=== PATIENT | female | born 1990 | race Caucasian/White ===

== ENCOUNTER 2016-05-03 18:47 | Emergency (ER) | payer OTHER ==
[2016-05-03] MEDS ORDERED: SODIUM CHLORIDE 0.9% 1,000 ML IV STA (19:37)
--- NOTE | 2016-05-03 19:40 | ED ---
Recheck HPI - General Chief Complaint: Recheck/Abnormal Lab/Rx Stated Complaint: MED REACTION Time Seen by Provider: 05/03/16 19:28 Source: patient, RN notes reviewed Mode of arrival: ambulatory Limitations: no limitations - History of Present Illness Initial Comments: 25-year-old female presents to the emergency department with a chief complaint of concerns about her thyroid. Patient does have hypothyroidism. Patient states about 2 months ago they switched her from her Synthroid to the generic medication. Patient states that since then she has noticed weakness fatigue or loss weight gain episodes of cold and hot in a myriad of other complaints. Patient provides a notebook sized piece of paper with a list of complaints. Patient states that she contacted the clinic where she got the prescription and they have not even checked her thyroid level since and the refused to change her medication back to what she was originally on. Patient states she is here because she just did not know where else to go. Patient states she is also noticed a nodule on top of her thyroid. Patient states that she was concerned so she thought that she should be evaluated. Patient denies any recent fever, chills, shortness of breath, chest pain, back pain, abdominal pain, nausea vomiting, numbness or tingling, dysuria or hematuria, constipation or diarrhea, headaches or visual changes, or any other current symptoms. - Related Data Home Medications Medication Instructions Recorded Confirmed ARIPiprazole [Abilify] 15 mg PO HS 04/26/15 05/03/16 Albuterol Inhaler [Ventolin Hfa 2 puff INHALATION RT-Q6H PRN 04/26/15 05/03/16 Inhaler] HYDROcodone/APAP 7.5-325MG [[place] 1 tab PO BID 04/26/15 05/03/16 7.5-325] Levothyroxine Sodium [Levoxyl] 50 mcg PO QAM 04/26/15 05/03/16 Fluticasone Nasal [place] [Flonase 1 spray EA NOSTRIL BID 02/14/16 05/03/16 Nasal [place]] Gabapentin [Neurontin] 400 mg PO TID 02/14/16 05/03/16 Ranitidine HCl [Zantac] 300 mg PO BID 02/14/16 05/03/16 Sertraline HCl [Zoloft] 200 mg PO DAILY 02/14/16 05/03/16 Gabapentin [Neurontin] 100 mg PO TID 05/03/16 05/03/16 Previous Rx's Medication Instructions Recorded Albuterol Inhaler [Ventolin Hfa 1 - 2 puff INHALATION Q6HR PRN #2 02/14/16 Inhaler] puff Allergies Allergy/AdvReac Type Severity Reaction Status Date / Time adhesive Allergy Rash/Hives Verified 05/03/16 19:41 amoxicillin [Amoxicillin] Allergy Rash/Hives Verified 05/03/16 19:41 hydrocortisone Allergy Rash/Hives Verified 05/03/16 19:41 sulfamethoxazole Allergy Rash/Hives Verified 05/03/16 19:41 [From Bactrim] trimethoprim [From Bactrim] Allergy Rash/Hives Verified 05/03/16 19:41 Review of Systems ROS Statement: Those systems with pertinent positive or pertinent negative responses have been documented in the HPI. ROS Other: All systems not noted in ROS Statement are negative. Past Medical History Past Medical History: Asthma, Fibromyalgia, Pneumonia, Skin Disorder, Syncope, Thyroid Disorder Additional Past Medical History / Comment(s): MIGRAINES(STATED HAS ENLARGED BLOOD VESSEL LT SIDE OF BRAIN), VILITIGO(AUTO IMMUNE SKIN DISEASE) LACTOSE INTOLERANCE. History of Any Multi-Drug Resistant Organisms: None Reported Past Surgical History: Adenoidectomy, Heart Catheterization Additional Past Surgical History / Comment(s): TILT TABLE TEST-08/2013, Dental surgary with two pulled teeth on the lower left jaw. Past Anesthesia/Blood Transfusion Reactions: Previous Problems w/ Anesthesia, Motion Sickness Additional Past Anesthesia/Blood Transfusion Reaction / Comment(s): B/P DROPS VERY LOW WITH EPIDURALS PER PT, CLAUSTERPHOBIA Past Psychological History: Anxiety, Bipolar, Panic Disorder Smoking Status: Current every day smoker Past Alcohol Use History: None Reported Additional Past Alcohol Use History / Comment(s): HAS BEEN SMOKING FOR 10 YEARS 1/2 PPD, DENIES ANY ETOH , SMOKES MARIJUANA TO IMPROVE APPETITE Past Drug Use History: Marijuana Additional Drug Use History / Comment(s): MARIJUANA-USES 1-2 TIMES DAILY - Past Family History Mother Family Medical History: Cancer Additional Family Medical History / Comment(s): THYROID AND CERVICAL CAMCER, BIPOLAR. MATERNAL GRANDMOTHER HAD ULCERATIVE COLITIS. Father Additional Family Medical History / Comment(s): IBA, BIPOLAR General Exam - General Exam Comments Initial Comments: General: The patient is awake and alert, in no distress, and does not appear acutely ill. Eye: Pupils are equal, round and reactive to light, extra-ocular movements are intact; there is normal conjunctiva bilaterally. No signs of icterus. Ears, nose, mouth and throat: There are moist mucous membranes. Neck: The neck is supple, there is no tenderness. Cardiovascular: There is a regular rate and rhythm. No murmur, rub or gallop is appreciated. Respiratory: Lungs are clear to auscultation, respirations are non-labored, breath sounds are equal. No wheezes, stridor, rales, or rhonchi. Gastrointestinal: Soft, non-distended, non-tender abdomen without masses or organomegaly noted. There is no rebound or guarding present. No CVA tenderness. Bowel sounds are unremarkable. Back: There is no tenderness to palpation in the midline. There is no obvious deformity. No rashes noted. Musculoskeletal: Normal ROM, no tenderness, There is no pedal edema. There is no calf tenderness or swelling. Sensation intact. Pulses equal bilaterally 2+. Neurological: CN II-XII intact, There are no obvious motor or sensory deficits. Coordination appears grossly intact. Speech is normal. Skin: Skin is warm and dry and no rashes or lesions are noted. Psychiatric: Cooperative, appropriate mood & affect, normal judgment. Limitations: no limitations Course Vital Signs 05/03/16 18:54 Temperature 98.4 F Pulse Rate 83 Respiratory 16 Rate Blood Pressure 124/82 O2 Sat by Pulse 97 Oximetry Medical Decision Making - Medical Decision Making 25-year-old female presents emergency department with a chief complaint of concern about her thyroid. At this time patient thyroid is examined and is normal. Patient's laboratory is otherwise benign and the ultrasound was reviewed does not show any concerning significant findings. This time patient is informed of these results. Follow-up with her doctor as well as a possible shot blaster. Discussed continuing her medications. Patient stated that she understood and all her questions have been answered. She'll be discharged. - Lab Data Result diagrams: 05/03/16 20:12 05/03/16 20:12 Lab Results 05/03/16 05/03/16 05/03/16 Range/Units 20:12 20:12 20:57 WBC 4.0 (3.8-10.6) k/uL RBC 4.04 (3.80-5.40) m/uL Hgb 12.8 (11.4-16.0) gm/dL Hct 38.5 (34.0-46.0) % MCV 95.2 (80.0-100.0) fL MCH 31.7 (25.0-35.0) pg MCHC 33.3 (31.0-37.0) g/dL RDW 13.1 (11.5-15.5) % Plt Count 216 (150-450) k/uL Neutrophils % 52 % Lymphocytes % 38 % Monocytes % 4 % Eosinophils % 2 % Basophils % 1 % Neutrophils # 2.1 (1.3-7.7) k/uL Lymphocytes # 1.5 (1.0-4.8) k/uL Monocytes # 0.2 (0-1.0) k/uL Eosinophils # 0.1 (0-0.7) k/uL Basophils # 0.0 (0-0.2) k/uL Sodium 141 (137-145) mmol/L Potassium 3.9 (3.5-5.1) mmol/L Chloride 106 (98-107) mmol/L Carbon Dioxide 27 (22-30) mmol/L Anion Gap 8 mmol/L BUN 23 H (7-17) mg/dL Creatinine 0.86 (0.52-1.04) mg/dL Est GFR (MDRD) Af Amer >60 (>60 ml/min/1.73 sqM) Est GFR (MDRD) Non-Af >60 (>60 ml/min/1.73 sqM) Glucose 84 (74-99) mg/dL Calcium 9.5 (8.4-10.2) mg/dL Total Bilirubin 0.5 (0.2-1.3) mg/dL AST 19 (14-36) U/L ALT 24 (9-52) U/L Alkaline Phosphatase 62 (38-126) U/L Total Protein 6.6 (6.3-8.2) g/dL Albumin 4.3 (3.5-5.0) g/dL TSH 2.360 (0.465-4.680) mIU/L Urine Color Urine Appearance (Clear) Urine pH (5.0-8.0) Ur Specific [place] (1.001-1.035) Urine Protein (Negative) Urine Glucose (UA) (Negative) Urine Ketones (Negative) Urine Blood (Negative) Urine Nitrate (Negative) Urine Bilirubin (Negative) Urine Urobilinogen (<2.0) mg/dL Ur Leukocyte Esterase (Negative) Urine RBC (0-5) /hpf Urine WBC (0-5) /hpf Ur Squamous Epith Cells (0-4) /hpf Urine Bacteria (None) /hpf Urine Mucus (None) /hpf Urine HCG, Qual Not Detected (Not Detectd) 05/03/16 Range/Units 20:57 WBC (3.8-10.6) k/uL RBC (3.80-5.40) m/uL Hgb (11.4-16.0) gm/dL Hct (34.0-46.0) % MCV (80.0-100.0) fL MCH (25.0-35.0) pg MCHC (31.0-37.0) g/dL RDW (11.5-15.5) % Plt Count (150-450) k/uL Neutrophils % % Lymphocytes % % Monocytes % % Eosinophils % % Basophils % % Neutrophils # (1.3-7.7) k/uL Lymphocytes # (1.0-4.8) k/uL Monocytes # (0-1.0) k/uL Eosinophils # (0-0.7) k/uL Basophils # (0-0.2) k/uL Sodium (137-145) mmol/L Potassium (3.5-5.1) mmol/L Chloride (98-107) mmol/L Carbon Dioxide (22-30) mmol/L Anion Gap mmol/L BUN (7-17) mg/dL Creatinine (0.52-1.04) mg/dL Est GFR (MDRD) Af Amer (>60 ml/min/1.73 sqM) Est GFR (MDRD) Non-Af (>60 ml/min/1.73 sqM) Glucose (74-99) mg/dL Calcium (8.4-10.2) mg/dL Total Bilirubin (0.2-1.3) mg/dL AST (14-36) U/L ALT (9-52) U/L Alkaline Phosphatase (38-126) U/L Total Protein (6.3-8.2) g/dL Albumin (3.5-5.0) g/dL TSH (0.465-4.680) mIU/L Urine Color Yellow Urine Appearance Cloudy H (Clear) Urine pH 6.0 (5.0-8.0) Ur Specific [place] 1.019 (1.001-1.035) Urine Protein Trace H (Negative) Urine Glucose (UA) Negative (Negative) Urine Ketones Negative (Negative) Urine Blood Negative (Negative) Urine Nitrate Negative (Negative) Urine Bilirubin Negative (Negative) Urine Urobilinogen <2.0 (<2.0) mg/dL Ur Leukocyte Esterase Small H (Negative) Urine RBC 1 (0-5) /hpf Urine WBC 2 (0-5) /hpf Ur Squamous Epith Cells 11 H (0-4) /hpf Urine Bacteria Rare H (None) /hpf Urine Mucus Rare H (None) /hpf Urine HCG, Qual (Not Detectd) - Radiology Data Radiology results: report reviewed, image reviewed Disposition Clinical Impression: Weakness generalized, Hypothyroidism, Neck nodule Disposition: HOME SELF-CARE Condition: Stable Instructions: Hypothyroidism (ED) Additional Instructions: Please use medication as discussed. Please follow up with family doctor if symptoms have not improved over the next two days. Please return to the emergency room if your symptoms increase or worsen or for any other concerns. Referrals: Zohaib Callahan MD [Primary Care Provider] - 1-2 days Time of Disposition: 21:26
[2016-05-03 20:26] LABS: Basophils % (A) 1 %; CH 31.8; CHCM 33.6; Eosinophils # (A) 0.1 k/uL (0-0.7); Eosinophils % (A) 2 %; HCT 38.5 % (34.0-46.0); HDW 2.46; HGB 12.8 gm/dL (11.4-16.0); Luc # (Auto) 0.11; Luc % (Auto) 3; Lymphocytes # (A) 1.5 k/uL (1.0-4.8); Lymphocytes % (A) 38 %; MCH 31.7 pg (25.0-35.0); MCHC 33.3 g/dL (31.0-37.0); MCV 95.2 fL (80.0-100.0); Mean Platelet Volume 6.8; Monocytes # (A) 0.2 k/uL (0-1.0); Monocytes % (A) 4 %; Neutrophils # (A) 2.1 k/uL (1.3-7.7); Neutrophils % (A) 52 %; RBC 4.04 m/uL (3.80-5.40); RDW 13.1 % (11.5-15.5); WBC (Perox) 4.01
[2016-05-03 20:35] LABS: ALT 24 U/L (9-52); AST 19 U/L (14-36); Alkaline Phosphatase 62 U/L (38-126); Anion Gap 8 mmol/L; Blood Urea Nitrogen 23 mg/dL (7-17); Calcium 9.5 mg/dL (8.4-10.2); Carbon Dioxide 27 mmol/L (22-30); Chloride 106 mmol/L (98-107); Glucose 84 mg/dL (74-99); Non-African American GFR(MDRD) >60 (>60 ml/min/1.73 sqM); Potassium 3.9 mmol/L (3.5-5.1); Sodium 141 mmol/L (137-145); Total Bilirubin 0.5 mg/dL (0.2-1.3); Total Protein 6.6 g/dL (6.3-8.2)
--- NOTE | 2016-05-03 20:57 | US ---
EXAMINATION TYPE: US thyroid st tissue head/neck DATE OF EXAM: 05/03/2016 8:48 PM COMPARISON: 05/25/2015 CLINICAL HISTORY: patient is now on generic meds and noticed hair falling out, cold, sweaty. GLAND SIZE: Right Lobe: 4.3 x 1.4 x 2.1cm Overall Parenchyma: homogeneous Left Lobe: 4.6 x 1.1 x 1.6cm Overall Parenchyma: homogeneous Isthmus Thickness: 0.3cm NODULES RIGHT: # of nodules measured on right: 0 LEFT: # of nodules measured on left: 0 ISTHMUS: # of nodules measured in the isthmus: 1 1. 0.3 X 0.4 x 0.3 cm hypoechoic solid nodule with well-defined margins. This nodule is wider than tall and shows no intranodular vascularity. TECHNOLOGIST IMPRESSION: Bilateral neck scanned, no abnormal lymphadenopathy noted. IMPRESSION: There is a 3 mm hypoechoic nodule on the right side of the isthmus of doubtful significance. Otherwis e negative thyroid sonogram. No dominant mass. No change compared to old exam. Sonographic pattern Very low suspicion. SONOGRAPHIC PATTERNS, ESTIMATED MALIGNANCY RISK AND FNA GUIDANCE FOR THYROID NODULES Sonographic Pattern: Benign Ultrasound Features: Purely Cystic Nodules (No Solid Component) Estimated Risk Of Malignancy, %: <1 FNA Size Cutoff (Largest Dimension): No Biopsy Sonographic Pattern: Very Low Suspicion Ultrasound Features: Spongiform Or Partially Cystic Nodules Without Any Of The Sonographic Features Described In Low, Inte rmediate Or High Suspicion Patterns. Estimated Risk Of Malignancy, %: <3 FNA Size Cutoff (Largest Dimension): Recommend FNA At > 2cm Or Observation Without FNA Sonographic Pattern: Low Suspicion Ultrasound Features: Isoechoic Or Hyperechoic Solid Nodule, Or Partially Cystic Nodule With Eccentric Solid Areas, Without Microcalcification, Irregular Margin Or Ete, Or Taller Than Wide Shape. Estimated Risk Of Malignancy, %: 5-10 FNA Size Cutoff (Largest Dimension): Recommend FNA At > 1.5cm Sonographic Pattern: Intermediate Suspicion Ultrasound Features: Hypoechoic Solid Nodule With Smooth Margins Without Microcalcifications, Ete, Or Taller Than Wide Sha pe. Estimated Risk Of Malignancy, %: 10-20 FNA Size Cutoff (Largest Dimension): Recommend FNA At > 1cm Sonographic Pattern: High Suspicion Ultrasound Features: Solid Hypoechoic Nodule Or Solid Hypoechoic Component Of A Partially Cystic Nodule With One Or More O f The Following Features: Irregular Margins (Infiltrative, Microlobulated), Microcalcifications, Tall er Than Wide Shape, Rim Calcifications With Small Extrusive Soft Tissue Component, Evidence Of Ete Estimated Risk Of Malignancy, %: >70-90 FNA Size Cutoff (Largest Dimension): Recommend FNA At > 1cm
[2016-05-03 21:07] LABS: Appearance,Urine Cloudy (Clear); Bacteria,Urine Rare /hpf; Bilirubin,Urine Negative (Negative); Glucose,Urine (UA) Negative (Negative); Ketones,Urine Negative (Negative); Leukocyte Esterase,Urine Small (Negative); Mucus,Urine Rare /hpf; Nitrite,Urine Negative (Negative); Particle Count 4540; Protein,Urine Trace (Negative); RBC,Urine 1 /hpf (0-5); Specific Gravity,Urine 1.019 (1.001-1.035); Squamous Epithelial Cell,Urine 11 /hpf (0-4); UA Billing (MACRO vs. MICRO) MICRO; Urobilinogen,Urine <2.0 mg/dL (<2.0); WBC,Urine 2 /hpf (0-5)
[2016-05-03 21:47] VITALS: BP 115/60; PULSE 78; RESP 18; TEMP 97
== END 2016-05-03 21:47 | disposition home or self-care (01) ==
LOC: EC 18:47
DX: E03.9 Hypothyroidism, unspecified (principal); R22.1 Localized swelling, mass and lump, neck; F31.9 Bipolar disorder, unspecified; M79.7 Fibromyalgia; F41.9 Anxiety disorder, unspecified; J45.909 Unspecified asthma, uncomplicated; F17.200 Nicotine dependence, unspecified, uncomplicated; Z79.899 Other long term (current) drug therapy; Z79.891 Long term (current) use of opiate analgesic; Z79.51 Long term (current) use of inhaled steroids; Z91.048 Other nonmedicinal substance allergy status; Z88.8 Allergy status to other drugs, medicaments and biological substances; Z88.2 Allergy status to sulfonamides; Z88.0 Allergy status to penicillin; Z88.1 Allergy status to other antibiotic agents; F41.0 Panic disorder [episodic paroxysmal anxiety]
CPT/HCPCS: 36415; 76536; 80053; 81001; 81025; 84443; 85025; 99284

== ENCOUNTER 2016-05-06 18:02 | Emergency (ER) | payer OTHER ==
[2016-05-06] MEDS ORDERED: KETOROLAC 60 MG/2 ML VIAL IM STA (18:23)
[2016-05-06] MEDS ORDERED: ORPHENADRINE 30 MG/ML 2 ML VIAL IM STA (18:23)
[2016-05-06 18:29] VITALS: BP 109/65; PULSE 72; RESP 16; TEMP 97.7
--- NOTE | 2016-05-06 18:36 | XR ---
EXAMINATION TYPE: XR shoulder complete LT DATE OF EXAM: 05/06/2016 6:32 PM CLINICAL HISTORY: pain TECHNIQUE: Three views of the left shoulder are obtained. COMPARISON: None FINDINGS: There is no acute fracture/dislocation evident. The acromioclavicular and glenohumeral fredi int spaces appear within normal limits. The visualized ribs are intact and unremarkable. IMPRESSION: 1. There is no acute fracture or dislocation. ICD 10 NO FRACTURE, INITIAL EVALUATION
--- NOTE | 2016-05-06 18:37 | ED ---
General Adult HPI - General Stated complaint: left shoulder pain Time Seen by Provider: 05/06/16 18:23 Source: patient, RN notes reviewed Mode of arrival: ambulatory Limitations: no limitations - History of Present Illness Initial comments: 25-year-old female presents for left shoulder take pain. Patient states the residual this pain to the left side of her neck down into her shoulder. Patient states just feels sore and achy. He states movement seems to make it worse. Patient states that she has had this before when she slept wrong as well. Patient states that she has any fever chills cough cold runny nose. Patient has chest pain or shortness of breath. Patient states that she went to urgent care and she was sent here because they were concerned about her shoulder x-ray. Patient states that she is not currently having any other symptoms. Patient denies any recent fever, chills, shortness of breath, chest pain, back pain, abdominal pain, nausea vomiting, numbness or tingling, dysuria or hematuria, constipation or diarrhea, headaches or visual changes, or any other current symptoms. - Related Data Home Medications Medication Instructions Recorded Confirmed ARIPiprazole [Abilify] 15 mg PO HS 04/26/15 05/03/16 Albuterol Inhaler [Ventolin Hfa 2 puff INHALATION RT-Q6H PRN 04/26/15 05/03/16 Inhaler] HYDROcodone/APAP 7.5-325MG [[place] 1 tab PO BID 04/26/15 05/03/16 7.5-325] Levothyroxine Sodium [Levoxyl] 50 mcg PO QAM 04/26/15 05/03/16 Fluticasone Nasal [place] [Flonase 1 spray EA NOSTRIL BID 02/14/16 05/03/16 Nasal [place]] Gabapentin [Neurontin] 400 mg PO TID 02/14/16 05/03/16 Ranitidine HCl [Zantac] 300 mg PO BID 02/14/16 05/03/16 Sertraline HCl [Zoloft] 200 mg PO DAILY 02/14/16 05/03/16 Gabapentin [Neurontin] 100 mg PO TID 05/03/16 05/03/16 Previous Rx's Medication Instructions Recorded Albuterol Inhaler [Ventolin Hfa 1 - 2 puff INHALATION Q6HR PRN #2 02/14/16 Inhaler] puff Ibuprofen [Motrin] 600 mg PO Q6HR PRN #20 tab 05/06/16 Orphenadrine [Norflex] 100 mg PO Q12H #10 tablet.er 05/06/16 Allergies Allergy/AdvReac Type Severity Reaction Status Date / Time adhesive Allergy Rash/Hives Verified 05/06/16 18:29 amoxicillin [Amoxicillin] Allergy Rash/Hives Verified 05/06/16 18:29 hydrocortisone Allergy Rash/Hives Verified 05/06/16 18:29 sulfamethoxazole Allergy Rash/Hives Verified 05/06/16 18:29 [From Bactrim] trimethoprim [From Bactrim] Allergy Rash/Hives Verified 05/06/16 18:29 Review of Systems ROS Statement: Those systems with pertinent positive or pertinent negative responses have been documented in the HPI. ROS Other: All systems not noted in ROS Statement are negative. Past Medical History Past Medical History: Asthma, Fibromyalgia, Pneumonia, Skin Disorder, Syncope, Thyroid Disorder Additional Past Medical History / Comment(s): MIGRAINES(STATED HAS ENLARGED BLOOD VESSEL LT SIDE OF BRAIN), VILITIGO(AUTO IMMUNE SKIN DISEASE) LACTOSE INTOLERANCE. History of Any Multi-Drug Resistant Organisms: None Reported Past Surgical History: Adenoidectomy, Heart Catheterization Additional Past Surgical History / Comment(s): TILT TABLE TEST-08/2013, Dental surgary with two pulled teeth on the lower left jaw. Past Anesthesia/Blood Transfusion Reactions: Previous Problems w/ Anesthesia, Motion Sickness Additional Past Anesthesia/Blood Transfusion Reaction / Comment(s): B/P DROPS VERY LOW WITH EPIDURALS PER PT, CLAUSTERPHOBIA Past Psychological History: Anxiety, Bipolar, Panic Disorder Smoking Status: Current every day smoker Past Alcohol Use History: None Reported Additional Past Alcohol Use History / Comment(s): HAS BEEN SMOKING FOR 10 YEARS 1/2 PPD, DENIES ANY ETOH , SMOKES MARIJUANA TO IMPROVE APPETITE Past Drug Use History: Marijuana Additional Drug Use History / Comment(s): MARIJUANA-USES 1-2 TIMES DAILY - Past Family History Mother Family Medical History: Cancer Additional Family Medical History / Comment(s): THYROID AND CERVICAL CAMCER, BIPOLAR. MATERNAL GRANDMOTHER HAD ULCERATIVE COLITIS. Father Additional Family Medical History / Comment(s): IBA, BIPOLAR General Exam - General Exam Comments Initial Comments: General: The patient is awake and alert, in no distress, and does not appear acutely ill. Neck: The neck is supple, there is minimal tenderness lateral aspect of the neck. Cardiovascular: There is a regular rate and rhythm. No murmur, rub or gallop is appreciated. Respiratory: Lungs are clear to auscultation, respirations are non-labored, breath sounds are equal. No wheezes, stridor, rales, or rhonchi. Musculoskeletal: Sensation intact with 2+ pulses. Left extremity. full Range of motion of left shoulder or left elbow and left wrist.Along the posterior spinous of the scapula. No deformity noted. Neurological: CN II-XII intact, There are no obvious motor or sensory deficits. Coordination appears grossly intact. Speech is normal. Skin: Skin is warm and dry and no rashes or lesions are noted. Psychiatric: Normal mood and affect. Limitations: no limitations Course Vital Signs 05/06/16 18:24 Temperature 97.7 F Pulse Rate 72 Respiratory 16 Rate Blood Pressure 109/65 O2 Sat by Pulse 96 Oximetry Medical Decision Making - Medical Decision Making [id number]-year-old female presents to the emergency Department chief complaint of what appears to be cervical and shoulder strain. And we discussed using the muscle relaxers and medication as prescribed. We discussed return parameters and follow-up. Patient states she Questions Were Answered. She'll Be Discharged. - Radiology Data Radiology results: report reviewed, image reviewed Disposition Clinical Impression: Cervical strain, acute, Shoulder strain Disposition: HOME SELF-CARE Condition: Stable Instructions: Cervical Strain (ED) Additional Instructions: Please use medication as discussed. Please follow up with family doctor if symptoms have not improved over the next two days. Please return to the emergency room if your symptoms increase or worsen or for any other concerns. Prescriptions: Ibuprofen [Motrin] 600 mg PO Q6HR PRN #20 tab PRN Reason: Pain Orphenadrine [Norflex] 100 mg PO Q12H #10 tablet.er Referrals: Zohaib Callahan MD [Primary Care Provider] - 1-2 days Time of Disposition: 18:39
== END 2016-05-06 18:56 | disposition home or self-care (01) ==
LOC: EC 18:02
DX: S16.1XXA Strain of muscle, fascia and tendon at neck level, initial encounter (principal); S46.912A Strain of unspecified muscle, fascia and tendon at shoulder and upper arm level, left arm, initial encounter; X58.XXXA Exposure to other specified factors, initial encounter; M79.7 Fibromyalgia; F31.9 Bipolar disorder, unspecified; F41.9 Anxiety disorder, unspecified; F41.0 Panic disorder [episodic paroxysmal anxiety]; F12.90 Cannabis use, unspecified, uncomplicated; F17.200 Nicotine dependence, unspecified, uncomplicated; Z79.51 Long term (current) use of inhaled steroids; Z79.899 Other long term (current) drug therapy; Z88.0 Allergy status to penicillin; Z88.1 Allergy status to other antibiotic agents; Z88.2 Allergy status to sulfonamides; Z88.8 Allergy status to other drugs, medicaments and biological substances
CPT/HCPCS: 99283; 96372 ×2; 73030; J2360; J1885

== ENCOUNTER → 2016-05-24 | Outpatient (CLI) | payer OTHER ==
[2016-05-24 11:01] LABS: ALT 32 U/L (9-52); AST 21 U/L (14-36); Alkaline Phosphatase 70 U/L (38-126); Anion Gap 12 mmol/L; Blood Urea Nitrogen 19 mg/dL (7-17); Calcium 9.9 mg/dL (8.4-10.2); Carbon Dioxide 23 mmol/L (22-30); Chloride 109 mmol/L (98-107); Cholesterol 201 mg/dL (<200); Glucose 94 mg/dL (74-99); HDL Cholesterol 66 mg/dL (40-60); Non-African American GFR(MDRD) >60 (>60 ml/min/1.73 sqM); Potassium 4.4 mmol/L (3.5-5.1); Sodium 144 mmol/L (137-145); Total Bilirubin 0.7 mg/dL (0.2-1.3); Total Protein 7.4 g/dL (6.3-8.2); Triglycerides 109 mg/dL (<150)
[2016-05-24 11:34] LABS: Hemoglobin A1C 4.7 % (4.2-6.1)
== END | disposition home or self-care (01) ==
LOC: LABWHC1 10:11
PROVIDERS: ATTEND Family Medicine
DX: Z00.00 Encounter for general adult medical examination without abnormal findings (principal); Z13.1 Encounter for screening for diabetes mellitus; Z13.220 Encounter for screening for lipoid disorders
CPT/HCPCS: 36415; 80053; 80061; 83036; 84439; 84443

== ENCOUNTER 2016-08-18 15:26 | Emergency (ER) | payer OTHER ==
[2016-08-18 15:36] VITALS: BP 129/78; PULSE 80; RESP 20; TEMP 99
--- NOTE | 2016-08-18 15:53 | ED ---
General Adult HPI - General Chief complaint: Anxiety Stated complaint: mental health Time Seen by Provider: 08/18/16 15:50 Source: patient, RN notes reviewed, old records reviewed Mode of arrival: ambulatory Limitations: no limitations - History of Present Illness Initial comments: This is a 18-year-old female brought in for evaluation of being out of anxiety medications. Patient's out of all her home medications. No doctor's appointment until about a week or so. Patient admits increased anxiety, but also concerned over not having any of her home medications. Not homicidal or suicidal, no drugs or alcohol - Related Data Home Medications Medication Instructions Recorded Confirmed Albuterol Inhaler [Ventolin Hfa 2 puff INHALATION RT-Q6H PRN 04/26/15 08/18/16 Inhaler] Gabapentin [Neurontin] 100 mg PO TID 05/03/16 08/18/16 Cetirizine HCl [Zyrtec] 10 mg PO DAILY 08/18/16 08/18/16 Gabapentin [Neurontin] 400 mg PO TID 08/18/16 08/18/16 Levothyroxine Sodium [Synthroid] 50 mcg PO DAILY 08/18/16 08/18/16 Orphenadrine [Norflex] 100 mg PO DAILY 08/18/16 08/18/16 Sertraline [Zoloft] 200 mg PO DAILY 08/18/16 08/18/16 lamoTRIgine [LaMICtal] 150 mg PO BID 08/18/16 08/18/16 Previous Rx's Medication Instructions Recorded LORazepam [Ativan] 1 mg PO BID PRN #20 tab 08/18/16 Allergies Allergy/AdvReac Type Severity Reaction Status Date / Time adhesive Allergy Rash/Hives Verified 08/18/16 16:04 amoxicillin [Amoxicillin] Allergy Rash/Hives Verified 08/18/16 16:04 hydrocortisone Allergy Rash/Hives Verified 08/18/16 16:04 sulfamethoxazole Allergy Rash/Hives Verified 08/18/16 16:04 [From Bactrim] trimethoprim [From Bactrim] Allergy Rash/Hives Verified 08/18/16 16:04 Review of Systems ROS Statement: Those systems with pertinent positive or pertinent negative responses have been documented in the HPI. ROS Other: All systems not noted in ROS Statement are negative. Past Medical History Past Medical History: Asthma, Fibromyalgia, Pneumonia, Skin Disorder, Syncope, Thyroid Disorder Additional Past Medical History / Comment(s): MIGRAINES(STATED HAS ENLARGED BLOOD VESSEL LT SIDE OF BRAIN), VILITIGO(AUTO IMMUNE SKIN DISEASE) LACTOSE INTOLERANCE. History of Any Multi-Drug Resistant Organisms: None Reported Past Surgical History: Adenoidectomy, Heart Catheterization Additional Past Surgical History / Comment(s): TILT TABLE TEST-08/2013, Dental surgary with two pulled teeth on the lower left jaw. Past Anesthesia/Blood Transfusion Reactions: Previous Problems w/ Anesthesia, Motion Sickness Additional Past Anesthesia/Blood Transfusion Reaction / Comment(s): B/P DROPS VERY LOW WITH EPIDURALS PER PT, CLAUSTERPHOBIA Past Psychological History: Anxiety, Bipolar, Panic Disorder Smoking Status: Current every day smoker Past Alcohol Use History: None Reported Additional Past Alcohol Use History / Comment(s): HAS BEEN SMOKING FOR 10 YEARS 1/2 PPD, DENIES ANY ETOH , SMOKES MARIJUANA TO IMPROVE APPETITE Past Drug Use History: Marijuana Additional Drug Use History / Comment(s): MARIJUANA-USES 1-2 TIMES DAILY - Past Family History Mother Family Medical History: Cancer Additional Family Medical History / Comment(s): THYROID AND CERVICAL CAMCER, BIPOLAR. MATERNAL GRANDMOTHER HAD ULCERATIVE COLITIS. Father Additional Family Medical History / Comment(s): IBA, BIPOLAR General Exam Limitations: no limitations General appearance: alert, in no apparent distress Head exam: Present: atraumatic, normocephalic, normal inspection Eye exam: Present: normal appearance, PERRL, EOMI. Absent: scleral icterus, conjunctival injection, periorbital swelling ENT exam: Present: normal exam, mucous membranes moist Neck exam: Present: normal inspection. Absent: tenderness, meningismus, lymphadenopathy Respiratory exam: Present: normal lung sounds bilaterally. Absent: respiratory distress, wheezes, rales, rhonchi, stridor Cardiovascular Exam: Present: regular rate, normal rhythm, normal heart sounds. Absent: systolic murmur, diastolic murmur, rubs, gallop, clicks GI/Abdominal exam: Present: soft, normal bowel sounds. Absent: distended, tenderness, guarding, rebound, rigid Extremities exam: Present: normal inspection, full ROM, normal capillary refill. Absent: tenderness, pedal edema, joint swelling, calf tenderness Back exam: Present: normal inspection Neurological exam: Present: alert, oriented X3, CN II-XII intact Psychiatric exam: Present: normal affect, normal mood Skin exam: Present: warm, dry, intact, normal color. Absent: rash Course Vital Signs 08/18/16 15:33 Temperature 99.0 F Pulse Rate 80 Respiratory 20 Rate Blood Pressure 129/78 O2 Sat by Pulse 99 Oximetry Medical Decision Making - Medical Decision Making 18 female here for evaluation medication refill, all medications refilled for one month and patient can be discharged home Disposition Clinical Impression: Medication refill Disposition: HOME SELF-CARE Condition: Good Instructions: Generalized Anxiety Disorder (ED), Medicine Refill (ED) Prescriptions: LORazepam [Ativan] 1 mg PO BID PRN #20 tab PRN Reason: Pain Referrals: None,Stated [Primary Care Provider] - 1-2 days
== END 2016-08-18 16:10 | disposition home or self-care (01) ==
LOC: EC 15:26
DX: Z76.0 Encounter for issue of repeat prescription (principal); E07.9 Disorder of thyroid, unspecified; F31.9 Bipolar disorder, unspecified; F17.200 Nicotine dependence, unspecified, uncomplicated; Z91.048 Other nonmedicinal substance allergy status; Z88.0 Allergy status to penicillin; Z88.2 Allergy status to sulfonamides; Z88.8 Allergy status to other drugs, medicaments and biological substances; Z79.899 Other long term (current) drug therapy
CPT/HCPCS: 99283

== ENCOUNTER 2016-08-21 16:50 | Emergency (ER) | payer OTHER ==
--- NOTE | 2016-08-21 17:05 | ED ---
Psych HPI - General Source: patient, EMS, RN notes reviewed Mode of arrival: EMS Limitations: no limitations <Brando Wright - Last Filed: 08/21/16 17:04> <Jr Fraire - Last Filed: 08/21/16 22:02> - General Stated Complaint: mental health Time Seen by Provider: 08/21/16 16:55 - History of Present Illness Initial Comments: 26-year-old female presents emergency department via EMS from primary care physician's office for psychiatric evaluation. Patient states he is suicidal, depressed. Patient states she's had a history of depression. Patient states that she was recently seen here given Ativan but states that helping. Patient states she was given an appointment on a cancellation list her psychiatrist office slowly canceled her appointment. Patient states that she used to cut herself in the past has not cut herself though she states she does want to harm herself. Denies any homicidal thoughts. Patient does admit to marijuana use no other drug use. Denies any alcohol use. Patient is taking her medications as prescribed. (Brando Wright) - Related Data Home Medications Medication Instructions Recorded Confirmed Albuterol Inhaler [Ventolin Hfa 2 puff INHALATION RT-Q6H PRN 04/26/15 08/21/16 Inhaler] Gabapentin [Neurontin] 100 mg PO TID 05/03/16 08/21/16 Cetirizine HCl [Zyrtec] 10 mg PO QAM 08/18/16 08/21/16 Gabapentin [Neurontin] 400 mg PO TID 08/18/16 08/21/16 Levothyroxine Sodium [Synthroid] 50 mcg PO DAILY 08/18/16 08/21/16 Orphenadrine [Norflex] 100 mg PO DAILY PRN 08/18/16 08/21/16 Sertraline [Zoloft] 200 mg PO QAM 08/18/16 08/21/16 lamoTRIgine [LaMICtal] 150 mg PO BID 08/18/16 08/21/16 ARIPiprazole [Abilify] 15 mg PO HS 08/21/16 08/21/16 LORazepam [Ativan] 1 mg PO BID 08/21/16 08/21/16 diphenhydrAMINE HCL [Benadryl] 50 mg PO HS 08/21/16 08/21/16 Allergies Allergy/AdvReac Type Severity Reaction Status Date / Time adhesive Allergy Rash/Hives Verified 08/21/16 18:11 amoxicillin [Amoxicillin] Allergy Rash/Hives Verified 08/21/16 18:11 hydrocortisone Allergy Rash/Hives Verified 08/21/16 18:11 sulfamethoxazole Allergy Rash/Hives Verified 08/21/16 18:11 [From Bactrim] trimethoprim [From Bactrim] Allergy Rash/Hives Verified 08/21/16 18:11 duloxetine [From Cymbalta] AdvReac Paradoxical Verified 08/21/16 18:11 Reaction olanzapine [From Zyprexa] AdvReac Paradoxical Verified 08/21/16 18:11 Reaction quetiapine [From Seroquel] AdvReac Paradoxical Verified 08/21/16 18:11 Reaction Review of Systems ROS Other: All systems not noted in ROS Statement are negative. <Brando Wright - Last Filed: 08/21/16 17:04> ROS Other: All systems not noted in ROS Statement are negative. <Jr Fraire - Last Filed: 08/21/16 22:02> ROS Statement: Those systems with pertinent positive or pertinent negative responses have been documented in the HPI. Past Medical History Past Medical History: Asthma, Fibromyalgia, Pneumonia, Skin Disorder, Syncope, Thyroid Disorder Additional Past Medical History / Comment(s): MIGRAINES(STATED HAS ENLARGED BLOOD VESSEL LT SIDE OF BRAIN), VILITIGO(AUTO IMMUNE SKIN DISEASE) LACTOSE INTOLERANCE. History of Any Multi-Drug Resistant Organisms: None Reported Past Surgical History: Adenoidectomy, Heart Catheterization Additional Past Surgical History / Comment(s): TILT TABLE TEST-08/2013, Dental surgary with two pulled teeth on the lower left jaw. Past Anesthesia/Blood Transfusion Reactions: Previous Problems w/ Anesthesia, Motion Sickness Additional Past Anesthesia/Blood Transfusion Reaction / Comment(s): B/P DROPS VERY LOW WITH EPIDURALS PER PT, CLAUSTERPHOBIA Past Psychological History: Anxiety, Bipolar, Panic Disorder Smoking Status: Current every day smoker Past Alcohol Use History: None Reported Additional Past Alcohol Use History / Comment(s): HAS BEEN SMOKING FOR 10 YEARS 1/2 PPD, DENIES ANY ETOH , SMOKES MARIJUANA TO IMPROVE APPETITE Past Drug Use History: Marijuana Additional Drug Use History / Comment(s): MARIJUANA-USES 1-2 TIMES DAILY - Past Family History Mother Family Medical History: Cancer Additional Family Medical History / Comment(s): THYROID AND CERVICAL CAMCER, BIPOLAR. MATERNAL GRANDMOTHER HAD ULCERATIVE COLITIS. Father Additional Family Medical History / Comment(s): IBA, BIPOLAR <KyleBrando Rohith - Last Filed: 08/21/16 17:04> General Exam Limitations: no limitations General appearance: alert, in no apparent distress ENT exam: Present: normal oropharynx Neck exam: Present: normal inspection, full ROM. Absent: tenderness, meningismus, lymphadenopathy Respiratory exam: Present: normal lung sounds bilaterally. Absent: respiratory distress, wheezes, rales, rhonchi, stridor Cardiovascular Exam: Present: regular rate, normal rhythm, normal heart sounds. Absent: systolic murmur, diastolic murmur, rubs, gallop, clicks Neurological exam: Present: alert, oriented X3, CN II-XII intact Psychiatric exam: Present: depressed, other (Tearful) Skin exam: Present: warm, dry, intact, normal color. Absent: rash <Brando Wright - Last Filed: 08/21/16 17:04> Course <Brando Wright - Last Filed: 08/21/16 17:04> <rJ Fraire - Last Filed: 08/21/16 22:02> Vital Signs 08/21/16 16:57 Temperature 98.9 F Pulse Rate 89 Respiratory 20 Rate Blood Pressure 130/63 O2 Sat by Pulse 98 Oximetry - Reevaluation(s) Reevaluation #1: 08/21/16 19:44 Patient signed out to me pending psychiatric evaluation. (Jr Fraire) Medical Decision Making <Brando Wright - Last Filed: 08/21/16 17:04> <Jr Fraire - Last Filed: 08/21/16 22:02> - Medical Decision Making Patient is a 26-year-old female presenting for psychiatric evaluation. Patient has thoughts of suicide but no plan. Patient states she is depressed. Patient' s UDS for benzos and marijuana. Patient was seen by EPS and cleared for outpatient management. On reevaluation patient is not suicidal, homicidal hallucinating. (Jr Fraire) - Lab Data Lab Results 08/21/16 Range/Units 18:05 Urine Opiates Screen Not Detected (NotDetected) Ur Oxycodone Screen Not Detected (NotDetected) Urine Methadone Screen Not Detected (NotDetected) Ur Propoxyphene Screen Not Detected (NotDetected) Ur Barbiturates Screen Not Detected (NotDetected) U Tricyclic Antidepress Not Detected (NotDetected) Ur Phencyclidine Scrn Not Detected (NotDetected) Ur Amphetamines Screen Not Detected (NotDetected) U Methamphetamines Scrn Not Detected (NotDetected) U Benzodiazepines Scrn Detected H (NotDetected) Urine Cocaine Screen Not Detected (NotDetected) U Marijuana (THC) Screen Detected H (NotDetected) Disposition <Brando Wright M - Last Filed: 08/21/16 17:04> <Jr Fraire R - Last Filed: 08/21/16 22:02> Clinical Impression: Mood disorder Disposition: HOME SELF-CARE Condition: Good Instructions: Depression (ED), Suicide Prevention for Adults (ED) Referrals: Carlin Albarado MD [Primary Care Provider] - 1-2 days
[2016-08-21] MEDS ORDERED: LORazepam 1 MG TAB PO STA (20:19)
[2016-08-21 22:05] VITALS: BP 123/65; PULSE 80; RESP 18; TEMP 97
== END 2016-08-21 22:05 | disposition home or self-care (01) ==
LOC: EC 16:50
DX: F31.9 Bipolar disorder, unspecified (principal); F41.9 Anxiety disorder, unspecified; E07.9 Disorder of thyroid, unspecified; F17.200 Nicotine dependence, unspecified, uncomplicated; Z88.0 Allergy status to penicillin; Z91.048 Other nonmedicinal substance allergy status; Z88.2 Allergy status to sulfonamides; Z88.8 Allergy status to other drugs, medicaments and biological substances; Z79.899 Other long term (current) drug therapy
CPT/HCPCS: 80306; 82075; 99284

== ENCOUNTER → 2016-11-05 | Outpatient (CLI) | payer OTHER ==
--- NOTE | 2016-11-05 16:30 | CT ---
EXAMINATION TYPE: CT sinus wo con DATE OF EXAM: 11/05/2016 COMPARISON: NONE HISTORY: 26-year-old female facial pain for 3 years, sinusitis. CT DLP: 635.1 mGycm Automated exposure control for dose reduction was used. TECHNIQUE: Noncontrast axial views of the paranasal sinuses were obtained. Coronal reconstructions pe rformed. FINDINGS: There is trace mucosal thickening within the right sphenoid sinus. Additional trace mucosal thickenin g right maxillary sinus along the floor and near the maxillary antrum. The frontal and ethmoidal sinuses are clear and well pneumatized. There is no air-fluid level. Reactive abby- osteogenesis is not seen. There is no destruction of the osseous medina of the paranasal sinuses. The osteomeatal complexes are patent. Slight rightward nasal septal deviation. The imaged brain and orbits are normal in appearance. Mastoid air cells and middle ear cavities are well pneumatized. Reformatted images confirm above findings. IMPRESSION: 1. Trace mucosal thickening within the right sphenoid and right maxillary sinuses. 2. Slight rightward nasal septal deviation.
--- NOTE | 2016-11-05 22:00 | US ---
EXAMINATION TYPE: US thyroid st tissue head/neck DATE OF EXAM: 11/05/2016 COMPARISON: 05/03/2016 CLINICAL HISTORY: 26-year-old female E03.9 Hypothyroid. Follow up exam TECHNIQUE: Multiple sonographic images of the thyroid gland were obtained. FINDINGS: GLAND SIZE: Right Lobe: 4.3 x 1.3 x 1.7 cm Overall Parenchyma: homogenous Left Lobe: 4.5 x 1.0 x 1.2 cm Overall Parenchyma: homogeneous Isthmus Thickness: 0.3 cm NODULES RIGHT: # of nodules measured on right: 0 LEFT: # of nodules measured on left: 0 ISTHMUS: # of nodules measured in the isthmus: 1 1. 0.4 X 0.2 x 0.2 cm hypoechoic solid nodule at the isthmus. This nodule is wider than tall and sh ows intranodular vascularity. Prior size: 4 x 3 x 3 mm Bilateral neck scanned, no evidence of lymphadenopathy. IMPRESSION: Stable tiny 4 mm isthmic nodule.
== END | disposition home or self-care (01) ==
LOC: RADCTMAIN 15:58
PROVIDERS: ATTEND Otolaryngology
DX: E04.1 Nontoxic single thyroid nodule (principal); J32.9 Chronic sinusitis, unspecified; J34.2 Deviated nasal septum
CPT/HCPCS: 70486; 76536

== ENCOUNTER 2016-11-13 15:19 | Emergency (ER) | payer OTHER ==
[2016-11-13 16:49] LABS: Appearance,Urine Clear (Clear); Bacteria,Urine Rare /hpf; Bilirubin,Urine Negative (Negative); Glucose,Urine (UA) Negative (Negative); Ketones,Urine Negative (Negative); Leukocyte Esterase,Urine Trace (Negative); Mucus,Urine Few /hpf; Nitrite,Urine Negative (Negative); Particle Count 6102; Protein,Urine 1+ (Negative); RBC,Urine 1 /hpf (0-5); Specific Gravity,Urine 1.025 (1.001-1.035); Squamous Epithelial Cell,Urine 6 /hpf (0-4); UA Billing (MACRO vs. MICRO) MICRO; WBC,Urine 1 /hpf (0-5)
--- NOTE | 2016-11-13 17:09 | ED ---
General Adult HPI - General Chief complaint: Recheck/Abnormal Lab/Rx Stated complaint: Questions/Rx Time Seen by Provider: 11/13/16 16:21 Source: patient, RN notes reviewed Mode of arrival: ambulatory Limitations: no limitations - History of Present Illness Initial comments: Patient 26-year-old female who presents emergency room today with chief complaint of . She does admit that she is on medications of Lamictal, Abilify, Zoloft, Neurontin. She states that in the past she was at his medications decreased and someone stop. She states she was concerned because she just found out that she is with positive test is at home. She does admit that her last cycle was at the end of September approximately half weeks ago. Patient denies any other complaints or associated symptoms. Patient denies any recent fever, chills, shortness of breath, chest pain, back pain, abdominal pain, nausea or vomiting, numbness or tingling, dysuria or hematuria, constipation or diarrhea, headaches or visual changes, or any other complaints. - Related Data Home Medications Medication Instructions Recorded Confirmed Cetirizine HCl [Zyrtec] 10 mg PO HS 08/18/16 11/13/16 Levothyroxine Sodium [Synthroid] 50 mcg PO DAILY 08/18/16 11/13/16 Sertraline [Zoloft] 200 mg PO QAM 08/18/16 11/13/16 lamoTRIgine [LaMICtal] 150 mg PO BID 08/18/16 11/13/16 ARIPiprazole [Abilify] 15 mg PO HS 08/21/16 11/13/16 Gabapentin [Neurontin] 200 mg PO BID 11/13/16 11/13/16 Allergies Allergy/AdvReac Type Severity Reaction Status Date / Time adhesive Allergy Rash/Hives Verified 11/13/16 15:33 amoxicillin [Amoxicillin] Allergy Rash/Hives Verified 11/13/16 15:33 hydrocortisone Allergy Rash/Hives Verified 11/13/16 15:33 sulfamethoxazole Allergy Rash/Hives Verified 11/13/16 15:33 [From Bactrim] trimethoprim [From Bactrim] Allergy Rash/Hives Verified 11/13/16 15:33 duloxetine [From Cymbalta] AdvReac Paradoxical Verified 11/13/16 15:33 Reaction olanzapine [From Zyprexa] AdvReac Paradoxical Verified 11/13/16 15:33 Reaction quetiapine [From Seroquel] AdvReac Paradoxical Verified 11/13/16 15:33 Reaction Review of Systems ROS Statement: Those systems with pertinent positive or pertinent negative responses have been documented in the HPI. ROS Other: All systems not noted in ROS Statement are negative. Past Medical History Past Medical History: Asthma, Fibromyalgia, Pneumonia, Skin Disorder, Syncope, Thyroid Disorder Additional Past Medical History / Comment(s): MIGRAINES(STATED HAS ENLARGED BLOOD VESSEL LT SIDE OF BRAIN), VILITIGO(AUTO IMMUNE SKIN DISEASE) LACTOSE INTOLERANCE. History of Any Multi-Drug Resistant Organisms: None Reported Past Surgical History: Adenoidectomy, Heart Catheterization Additional Past Surgical History / Comment(s): TILT TABLE TEST-08/2013, Dental surgary with two pulled teeth on the lower left jaw. Past Anesthesia/Blood Transfusion Reactions: Previous Problems w/ Anesthesia, Motion Sickness Additional Past Anesthesia/Blood Transfusion Reaction / Comment(s): B/P DROPS VERY LOW WITH EPIDURALS PER PT, CLAUSTERPHOBIA Past Psychological History: Anxiety, Bipolar, Panic Disorder Smoking Status: Current some day smoker Past Alcohol Use History: None Reported Past Drug Use History: None Reported - Past Family History Mother Family Medical History: Cancer Additional Family Medical History / Comment(s): THYROID AND CERVICAL CAMCER, BIPOLAR. MATERNAL GRANDMOTHER HAD ULCERATIVE COLITIS. Father Additional Family Medical History / Comment(s): IBA, BIPOLAR General Exam - General Exam Comments Initial Comments: General: The patient is awake and alert, in no distress, and does not appear acutely ill. Eye: Pupils are equal, round and reactive to light, extra-ocular movements are intact. No nystagmus. There is normal conjunctiva bilaterally. No signs of icterus. Ears, nose, mouth and throat: There are moist mucous membranes and no oral lesions. Neck: The neck is supple, there is no tenderness or JVD. Cardiovascular: There is a regular rate and rhythm. No murmur, rub or gallop is appreciated. Respiratory: Lungs are clear to auscultation, respirations are non-labored, breath sounds are equal. No wheezes, stridor, rales, or rhonchi. Gastrointestinal: Soft, non-distended, non-tender abdomen without masses or organomegaly noted. There is no rebound or guarding present. No CVA tenderness. Bowel sounds are unremarkable. Musculoskeletal: Normal ROM, no tenderness. Strength 5/5. Sensation intact. Pulses equal bilaterally 2+. Neurological: A&O x 3. CN II-XII intact, There are no obvious motor or sensory deficits. Coordination appears grossly intact. Speech is normal. Skin: Skin is warm and dry and no rashes or lesions are noted. Psychiatric: Cooperative, appropriate mood & affect, normal judgment. Limitations: no limitations Course Vital Signs 11/13/16 15:29 Temperature 99.2 F Pulse Rate 88 Respiratory 16 Rate Blood Pressure 130/78 O2 Sat by Pulse 97 Oximetry Medical Decision Making - Medical Decision Making Case discussed in detail with attending physician Dr. Novak. Approximately a week and a half . Patient's urinalysis reviewed no evidence of infection. Patient advised to follow-up with the [facility] or family doctor to have medication tapered or changed. Advised return to emergency room if any symptoms increase or worsen or for any other concerns. - Lab Data Lab Results 11/13/16 11/13/16 Range/Units 16:30 16:30 Urine Color Yellow Urine Appearance Clear (Clear) Urine pH 6.0 (5.0-8.0) Ur Specific [place] 1.025 (1.001-1.035) Urine Protein 1+ H (Negative) Urine Glucose (UA) Negative (Negative) Urine Ketones Negative (Negative) Urine Blood Negative (Negative) Urine Nitrite Negative (Negative) Urine Bilirubin Negative (Negative) Urine Urobilinogen 3.0 (<2.0) mg/dL Ur Leukocyte Esterase Trace H (Negative) Urine RBC 1 (0-5) /hpf Urine WBC 1 (0-5) /hpf Ur Squamous Epith Cells 6 H (0-4) /hpf Urine Bacteria Rare H (None) /hpf Urine Mucus Few H (None) /hpf Urine HCG, Qual Detected (Not Detectd) Disposition Clinical Impression: Disposition: HOME SELF-CARE Condition: Good Instructions: (ED) Additional Instructions: Please follow-up the family doctor or [facility] over the next 2 days. Please return here to the emergency room if any symptoms increase or worsen or for any other concerns. Referrals: Carlin Albarado MD [Primary Care Provider] - 1-2 days Time of Disposition: 17:07
[2016-11-13 17:20] VITALS: BP 118/74; PULSE 78; RESP 20; TEMP 98.8
== END 2016-11-13 17:20 | disposition home or self-care (01) ==
LOC: EC 15:19
DX: Z34.81 Encounter for supervision of other normal pregnancy, first trimester (principal); O99.511 Diseases of the respiratory system complicating pregnancy, first trimester; J45.909 Unspecified asthma, uncomplicated; O99.281 Endocrine, nutritional and metabolic diseases complicating pregnancy, first trimester; E07.9 Disorder of thyroid, unspecified; O99.89 Other specified diseases and conditions complicating pregnancy, childbirth and the puerperium; M79.7 Fibromyalgia; O99.341 Other mental disorders complicating pregnancy, first trimester; F31.9 Bipolar disorder, unspecified; F41.0 Panic disorder [episodic paroxysmal anxiety]; O99.331 Smoking (tobacco) complicating pregnancy, first trimester; F17.200 Nicotine dependence, unspecified, uncomplicated; Z79.899 Other long term (current) drug therapy; Z88.0 Allergy status to penicillin; Z88.1 Allergy status to other antibiotic agents; Z88.8 Allergy status to other drugs, medicaments and biological substances; Z91.09 Other allergy status, other than to drugs and biological substances; Z3A.01 Less than 8 weeks gestation of pregnancy
CPT/HCPCS: 81001; 81025; 87086; 99282

== ENCOUNTER 2016-12-04 19:27 | Inpatient (IN) | payer MEDICAID, OTHER ==
--- NOTE | 2016-12-04 20:46 | ED ---
Psych HPI - General Chief Complaint: Psychiatric Symptoms Stated Complaint: Mental Health Time Seen by Provider: 12/04/16 20:09 Source: patient, RN notes reviewed, old records reviewed Mode of arrival: ambulatory - History of Present Illness Initial Comments: This is a 26-year-old female presenting to emergency Department chief complaint of manic episodes of suicidal ideation. She reports she has history of bipolar. She reports that she got off of her medications a month ago. She reports that she took her children and was driving to various places and did not tell her for the past few weeks. She reports that she turned return home one week ago. She states that she's had lesions of harming herself and driving straight into a tree. She denies any plans to harm her children. She states that she has had no auditory or visual hallucinations. She used to be on Lamictal and Abilify. Patient reports that she has not been able to sleep for the past month. States she has a poor appetite as well. - Related Data Home Medications Medication Instructions Recorded Confirmed Levothyroxine Sodium [Levoxyl] 50 mcg PO DAILY 12/04/16 12/04/16 Allergies Allergy/AdvReac Type Severity Reaction Status Date / Time adhesive Allergy Rash/Hives Verified 12/04/16 20:27 amoxicillin [Amoxicillin] Allergy Rash/Hives Verified 12/04/16 20:27 hydrocortisone Allergy Rash/Hives Verified 12/04/16 20:27 sulfamethoxazole Allergy Rash/Hives Verified 12/04/16 20:27 [From Bactrim] trimethoprim [From Bactrim] Allergy Rash/Hives Verified 12/04/16 20:27 duloxetine [From Cymbalta] AdvReac Paradoxical Verified 12/04/16 20:27 Reaction olanzapine [From Zyprexa] AdvReac Paradoxical Verified 12/04/16 20:27 Reaction quetiapine [From Seroquel] AdvReac Paradoxical Verified 12/04/16 20:27 Reaction Review of Systems ROS Statement: Those systems with pertinent positive or pertinent negative responses have been documented in the HPI. ROS Other: All systems not noted in ROS Statement are negative. Past Medical History Past Medical History: Asthma, Fibromyalgia, Pneumonia, Skin Disorder, Syncope, Thyroid Disorder Additional Past Medical History / Comment(s): MIGRAINES(STATED HAS ENLARGED BLOOD VESSEL LT SIDE OF BRAIN), VILITIGO(AUTO IMMUNE SKIN DISEASE) LACTOSE INTOLERANCE. History of Any Multi-Drug Resistant Organisms: None Reported Past Surgical History: Adenoidectomy, Heart Catheterization Additional Past Surgical History / Comment(s): TILT TABLE TEST-08/2013, Dental surgary with two pulled teeth on the lower left jaw. Past Anesthesia/Blood Transfusion Reactions: Previous Problems w/ Anesthesia, Motion Sickness Additional Past Anesthesia/Blood Transfusion Reaction / Comment(s): B/P DROPS VERY LOW WITH EPIDURALS PER PT, CLAUSTERPHOBIA Past Psychological History: Anxiety, Bipolar, Panic Disorder Smoking Status: Current some day smoker Past Alcohol Use History: None Reported Past Drug Use History: Marijuana - Past Family History Mother Family Medical History: Cancer Additional Family Medical History / Comment(s): THYROID AND CERVICAL CAMCER, BIPOLAR. MATERNAL GRANDMOTHER HAD ULCERATIVE COLITIS. Father Additional Family Medical History / Comment(s): IBA, BIPOLAR General Exam - General Exam Comments Initial Comments: 26-year-old female. No acute distress. Limitations: no limitations General appearance: alert, in no apparent distress Head exam: Present: atraumatic, normocephalic, normal inspection Eye exam: Present: normal appearance, PERRL, EOMI. Absent: scleral icterus, conjunctival injection, periorbital swelling ENT exam: Present: normal exam, mucous membranes moist Neck exam: Present: normal inspection. Absent: tenderness, meningismus, lymphadenopathy Respiratory exam: Present: normal lung sounds bilaterally. Absent: respiratory distress, wheezes, rales, rhonchi, stridor Cardiovascular Exam: Present: regular rate, normal rhythm, normal heart sounds. Absent: systolic murmur, diastolic murmur, rubs, gallop, clicks GI/Abdominal exam: Present: soft, normal bowel sounds. Absent: distended, tenderness, guarding, rebound, rigid Extremities exam: Present: normal inspection, full ROM, normal capillary refill. Absent: tenderness, pedal edema, joint swelling, calf tenderness Back exam: Present: normal inspection Neurological exam: Present: alert, oriented X3, CN II-XII intact Psychiatric exam: Present: normal affect, depressed, agitated, manic, suicidal ideation (Patient wants to drive into a tree). Absent: normal mood Skin exam: Present: warm, dry, intact, normal color. Absent: rash Course Vital Signs 12/04/16 12/04/16 19:43 23:11 Temperature 98.2 F 97.4 F L Pulse Rate 98 80 Respiratory 18 16 Rate Blood Pressure 114/61 100/53 O2 Sat by Pulse 99 96 Oximetry Medical Decision Making - Medical Decision Making This is a 26-year-old female presenting to emergency Department chief complaint of manic episodes of suicidal ideation. She reports she has history of bipolar. She reports that she got off of her medications a month ago. She reports that she took her children and was driving to various places and did not tell her for the past few weeks. She reports that she turned return home one week ago. She states that she's had lesions of harming herself and driving straight into a tree. She denies any plans to harm her children. She states that she has had no auditory or visual hallucinations. Is medically clear for psychiatric evaluation. - Lab Data Result diagrams: 12/05/16 11:30 12/05/16 11:30 Lab Results 12/04/16 12/04/16 Range/Units 21:03 21:03 Urine Color Light Yellow Urine Appearance Clear (Clear) Urine pH 6.0 (5.0-8.0) Ur Specific [place] 1.007 (1.001-1.035) Urine Protein Negative (Negative) Urine Glucose (UA) Negative (Negative) Urine Ketones Negative (Negative) Urine Blood Negative (Negative) Urine Nitrite Negative (Negative) Urine Bilirubin Negative (Negative) Urine Urobilinogen <2.0 (<2.0) mg/dL Ur Leukocyte Esterase Small H (Negative) Urine RBC 2 (0-5) /hpf Urine WBC <1 (0-5) /hpf Ur Squamous Epith Cells 2 (0-4) /hpf Urine Bacteria Rare H (None) /hpf Urine Mucus Rare H (None) /hpf Urine Opiates Screen Not Detected (NotDetected) Ur Oxycodone Screen Not Detected (NotDetected) Urine Methadone Screen Not Detected (NotDetected) Ur Propoxyphene Screen Not Detected (NotDetected) Ur Barbiturates Screen Not Detected (NotDetected) U Tricyclic Antidepress Not Detected (NotDetected) Ur Phencyclidine Scrn Not Detected (NotDetected) Ur Amphetamines Screen Not Detected (NotDetected) U Methamphetamines Scrn Not Detected (NotDetected) U Benzodiazepines Scrn Detected H (NotDetected) Urine Cocaine Screen Not Detected (NotDetected) U Marijuana (THC) Screen Detected H (NotDetected) Disposition Clinical Impression: Depression, Suicidal ideation, Disposition: ADMITTED IP TO THIS [facility] Condition: Stable Time of Disposition: 23:01
[2016-12-04] MEDS ORDERED: ACETAMINOPHEN TAB 325 MG TAB PO PRN (23:08)
[2016-12-04 23:23] LABS: Appearance,Urine Clear (Clear); Bacteria,Urine Rare /hpf; Bilirubin,Urine Negative (Negative); Glucose,Urine (UA) Negative (Negative); Ketones,Urine Negative (Negative); Leukocyte Esterase,Urine Small (Negative); Mucus,Urine Rare /hpf; Nitrite,Urine Negative (Negative); Particle Count 2107; Protein,Urine Negative (Negative); RBC,Urine 2 /hpf (0-5); Specific Gravity,Urine 1.007 (1.001-1.035); Squamous Epithelial Cell,Urine 2 /hpf (0-4); UA Billing (MACRO vs. MICRO) MICRO; Urobilinogen,Urine <2.0 mg/dL (<2.0); WBC,Urine <1 /hpf (0-5)
[2016-12-05] MEDS: LEVOTHYROXINE 50 MCG TAB PO SCH (06:23)
--- NOTE | 2016-12-05 08:57 | P.HPMEDMHU ---
History of Present Illness H&P Date: 12/05/16 Chief Complaint: Insomnia Patient is a 26-year-old female with a history of hypothyroidism, fibromyalgia, and bipolar disorder who initially presented to the ER with thoughts of suicide. She states that she stopped her medication approximately 3 weeks ago. She did this because she found out that she was . She had been taking Zoloft Abilify and Lamictal and Ativan prior. She states that she also mentions 2 weeks worth of her levothyroxine and begin this again in approximately 2 days ago. She states that she had 3 positive tests at home. Her first day of her last menstrual period is October 19. She has a history of 5 pregnancies including misalignment with 3 children. She states that this does not seem to be in her and her family's best interest as she has 4 other stepchildren at home. She states that she has plans to terminate the this coming Friday. She complains of urinary frequency and nausea. She has not had any vomiting. She has otherwise not had any recent illness. She states that she has had a poor appetite, has not been able to sleep, and has been having a "manic episode". When she presented to the ER yesterday she had thoughts of suicide and expressed a plan of driving into a tree. She confirms this plan with me. She denies wishing to harm her children at home. Review of Systems General: no fever/chills, no rigors, no weight loss/weight gain, + decreased appetite Eyes: No double vision, no unusual blurry vision, no loss of vision ENT: No rhinorrhea, congestion, no trush Cardiovascular: No chest pain, no palpitations, no syncope, no edema, paroxysmal nocturnal dyspnea, dizziness Pulmonary: No shortness of breath, no wheezing, no cough, hemoptysis Abdominal: No abdominal pain, no constipation, no diarrhea, no vomiting, + nausea, no distention Genitourinary: No dysuria, + urinary frequency, no hematuria, no unusual discharge/odor Neuro: No unusual paresthesias, no unusual paresis/paralysis, no headache Dermatologic: No unusual rashes, no unusual lesions, no unusual changes in nails Endocrinology: No intolerance to heat/cold, no excessive thirst,] no unusual fatigue Hematologic: No unusual bruising or bleeding, no unusual cervical lymphadenopathy Psychiatric: + Thoughts of suicide with plan, increased anxiety, + insomnia All systems: negative Constitutional: Denies chills, Denies fever Eyes: denies blurred vision, denies pain Ears, nose, mouth and throat: Denies headache, Denies sore throat Cardiovascular: Denies chest pain, Denies shortness of breath Respiratory: Denies cough Gastrointestinal: Denies abdominal pain, Denies diarrhea, Denies nausea, Denies vomiting Genitourinary: Denies dysuria, Denies hematuria Musculoskeletal: Denies myalgias Integumentary: Denies pruritus, Denies rash Neurological: Denies numbness, Denies weakness Psychiatric: Denies anxiety, Denies depression Endocrine: Denies fatigue, Denies weight change Past Medical History Past Medical History: Asthma, Fibromyalgia, Pneumonia, Skin Disorder, Syncope, Thyroid Disorder Additional Past Medical History / Comment(s): MIGRAINES(STATED HAS ENLARGED BLOOD VESSEL LT SIDE OF BRAIN), VILITIGO(AUTO IMMUNE SKIN DISEASE) LACTOSE INTOLERANCE. History of Any Multi-Drug Resistant Organisms: None Reported Past Surgical History: Adenoidectomy, Heart Catheterization Additional Past Surgical History / Comment(s): TILT TABLE TEST-08/2013, Dental surgary with two pulled teeth on the lower left jaw. Past Anesthesia/Blood Transfusion Reactions: Previous Problems w/ Anesthesia, Motion Sickness Additional Past Anesthesia/Blood Transfusion Reaction / Comment(s): B/P DROPS VERY LOW WITH EPIDURALS PER PT, CLAUSTERPHOBIA Past Psychological History: Anxiety, Bipolar, Panic Disorder Smoking Status: Current every day smoker Past Alcohol Use History: None Reported Past Drug Use History: Marijuana - Past Family History Mother Family Medical History: Cancer Additional Family Medical History / Comment(s): THYROID AND CERVICAL CAMCER, BIPOLAR. MATERNAL GRANDMOTHER HAD ULCERATIVE COLITIS. Father Additional Family Medical History / Comment(s): IBA, BIPOLAR Medications and Allergies Home Medications Medication Instructions Recorded Confirmed Type LORazepam [Ativan] 1 mg PO BID PRN 12/04/16 12/04/16 History Levothyroxine Sodium [Levoxyl] 50 mcg PO DAILY 12/04/16 12/04/16 History Allergies Allergy/AdvReac Type Severity Reaction Status Date / Time adhesive Allergy Rash/Hives Verified 12/04/16 20:27 amoxicillin [Amoxicillin] Allergy Rash/Hives Verified 12/04/16 20:27 hydrocortisone Allergy Rash/Hives Verified 12/04/16 20:27 sulfamethoxazole Allergy Rash/Hives Verified 12/04/16 20:27 [From Bactrim] trimethoprim [From Bactrim] Allergy Rash/Hives Verified 12/04/16 20:27 duloxetine [From Cymbalta] AdvReac Paradoxical Verified 12/04/16 20:27 Reaction olanzapine [From Zyprexa] AdvReac Paradoxical Verified 12/04/16 20:27 Reaction quetiapine [From Seroquel] AdvReac Paradoxical Verified 12/04/16 20:27 Reaction Physical Exam Osteopathic Statement: *. No significant issues noted on an osteopathic structural exam other than those noted in the History and Physical/Consult. Vitals: Vital Signs Temp Pulse Pulse Resp BP BP Pulse Ox 12/05/16 06:45 98.4 F 78 16 96/54 12/04/16 23:35 98.5 F 74 15 106/58 98 12/04/16 23:11 97.4 F L 80 16 100/53 96 12/04/16 19:43 98.2 F 98 18 114/61 99 Intake and Output 12/04/16 12/05/16 12/05/16 22:59 06:59 14:59 Other: Weight 72.575 kg General: non toxic, no distress, appears at stated age, weight Derm: + Areas of hypopigmentation on face neck and bilateral hand no rashes, no lesions, no ulcers, no unusual ecchymoses Head: atraumatic, normocephalic, symmetric Eyes: EOMI, no lid lag, anicteric sclera, pupils equal round reactive to light ENT: no post nasal drip, no thrush , nearest patent, no pharyngeal erythema Neck: No thyromegally, no cervical lymphadenopathy, trachea midline, supple Mouth: no lip lesion, mucus membranes moist Cardiovascular: S1S2 reg, no murmur, positive posterior tibial pulse bilateral, no edema , no JVD, no clubbing, no cyanosis, capillary refill less than 2 seconds Lungs: CTA bilateral, no rhonchi, no rales , no accessory muscle use Abdominal: soft, nontender to palpation, no guarding, no appreciable organomegaly, normal bowel sounds Ext: no gross muscle atrophy, muscle strength 5 out of 5 in all 4 extremities grossly, no contracture, Neuro: CN II-XI grossly intact, light touch intact all 4 extremities, finger to nose within normal limits, Psych: Alert, oriented, appropriate affect Cranial Nerve Examination - Cranial Nerves Cranial Nerve I- Olfactory: Intact (As tested) Cranial Nerve II- Optic: Intact Cranial Nerve III- Oculomotor: Intact Cranial Nerve IV- Trochlear: Intact Cranial Nerve V- Trigeminal: Intact Cranial Nerve - Abducens: Intact Cranial Nerve VII- Facial: Intact Cranial Nerve VIII- Auditory: Intact Cranial Nerve IX- Glossopharyngeal: Intact Cranial Nerve X- Vagus: Intact Cranial Nerve XI- Accessory: Intact Cranial Nerve XII- Hypoglossal: Intact Results Labs: Abnormal Lab Results - Last 24 Hours (Table) 12/04/16 12/04/16 Range/Units 21:03 21:03 Ur Leukocyte Esterase Small H (Negative) Urine Bacteria Rare H (None) /hpf Urine Mucus Rare H (None) /hpf U Benzodiazepines Scrn Detected H (NotDetected) U Marijuana (THC) Screen Detected H (NotDetected) Assessment and Plan (1) Narrative/Plan: Patient states she is approximately 6 weeks . She states she had a positive home test. We'll recheck qualitative urine , quantitative serum . Will check baseline CBC and CMP. Patient states she is planning to terminate . We discussed at length that we should attempt to use the safest medication possible during encase she changes her mind. Patient is in agreement with this. We'll continue levothyroxine. Have also informed her that should she continue with this she will need to be evaluated by ELECTROPLATING TECHNICIAN. No indication for ultrasound at this point in time but would recommend at approximately 10 weeks. Status: Acute (2) Hypothyroidism Narrative/Plan: Check TSH, home levothyroxin reordered. Status: Chronic (3) Suicidal ideation Narrative/Plan: Management as per psychiatry. Status: Acute (4) Depression Narrative/Plan: Management as per psychiatry. Status: Acute (5) Tobacco abuse Narrative/Plan: patient counseled on the importance of cessation with current . Status: Acute Plan: Thank you for allowing us to participate in the care of this patient. We will follow peripherally. Do not hesitate to contact us with questions. Someone can be reached from the [facility] hospitalist group at all hours of the day at [phone]. Time with Patient: Greater than 30 (A total of 45 minutes was spent on this complex medical patient.)
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
[2016-12-05 09:50] VITALS: BMI 24.3
[2016-12-05 12:11] LABS: CH 30.7; CHCM 32.6; HCT 40.6 % (34.0-46.0); HDW 2.28; HGB 13.5 gm/dL (11.4-16.0); MCH 31.5 pg (25.0-35.0); MCHC 33.4 g/dL (31.0-37.0); MCV 94.5 fL (80.0-100.0); RDW 13.1 % (11.5-15.5); WBC 4.7 k/uL (3.8-10.6)
[2016-12-05 12:13] LABS: ALT 24 U/L (9-52); AST 16 U/L (14-36); Alkaline Phosphatase 58 U/L (38-126); Anion Gap 10 mmol/L; Blood Urea Nitrogen 7 mg/dL (7-17); Calcium 9.9 mg/dL (8.4-10.2); Carbon Dioxide 24 mmol/L (22-30); Chloride 105 mmol/L (98-107); Glucose 82 mg/dL (74-99); Non-African American GFR(MDRD) >60 (>60 ml/min/1.73 sqM); Potassium 4.5 mmol/L (3.5-5.1); Sodium 139 mmol/L (137-145); Total Bilirubin 0.4 mg/dL (0.2-1.3); Total Protein 6.8 g/dL (6.3-8.2)
[2016-12-05 13:36] LABS: HCG,Quantitative Serum 32777.9 mIU/mL
[2016-12-06] MEDS: LEVOTHYROXINE 50 MCG TAB PO SCH (06:26)
[2016-12-06 06:32] VITALS: BP 96/51; PULSE 75; RESP 16; TEMP 98.4
--- NOTE | 2016-12-06 11:24 | P.DS ---
Providers Date of admission: 12/04/16 23:03 Expected date of discharge: 12/06/16 Attending physician: Marietta Gabriel MD Consults: 12/04/16 23:08 Consult Physician Routine Consulting Provider: Basim Harmon Consult Reason/Comments: follow up H & P Do you want consulting provider notified?: Yes Primary care physician: [facility] Course: BRIEF ADMISSION HISTORY: 26-year-old female who was admitted to the mental health unit through emergency room after presenting with suicidal ideation on voluntary basis. Patient with depression and suicidal ideation after she fled from her with their 2 children for 5 weeks. She had discovered that she was with another man's child that occurred after a 1 night episode of drinking. She states that if she did not have her 2 young children with her she would have killed herself. States that she went off her meds as soon as she discovered that she was and since then has been not sleeping for more than 2 hours at a time during this entire 5 weeks. She reports that her mind is racing with all of the bad decisions that she has made in her past. She states that prior to this episode of drinking and having sex that she had been complaining that she didn't feel that her medication was effective. She states that she was told that her medications were at their maximum dose and that there was nothing more that could be done. HOSPITAL COURSE: Due to patient's we were unable to provide medication that might address her symptoms of depression, insomnia, anxiety. She also had guilt about what she had done. She denied suicidal ideation after she was admitted and felt that maybe she shouldn't have, after all but recognized that the admission was helpful. We had a long discussion about her symptoms and that she may need a medication such as lithium and once she is not that her outpatient psychiatrist could consider this along with the Abilify since she had done somewhat well with Abilify. Social work had a telephone conference with who felt that it was safe for her to come home. She will set an appointment with her psychiatrist Dr. Lawrence and what she has terminated the she can restart medications. IMPRESSIONS: 26-year-old female presents to the emergency room with suicidal ideation after discovering that she was with another man's child and she left her taking her 2 children. Her did not know where she was and she feels terrible guilt about what she put him through. She states that if she had not had the 2 children with her she would've committed suicide. Patient's history gives strong evidence to a diagnosis of bipolar type I with several episodes of kelby. It is unclear whether or not this episode of her drinking and having sex is a manic episode. According to the [facility] notes they to agree that she has bipolar 1 disorder with the most recent episode they documented was 01/22/2012 of that being a manic episode. They also give unspecified anxiety disorder, cannabis use disorder mild. Interestingly she has never been placed on lithium or Depakote she has been on and most recently on Abilify Lamictal Zoloft. Other medications that are listed from [facility] include Zyprexa. She also reports that she was prescribed Seroquel Patient has been suicidal for several weeks related to discovery of being with another man's baby. It appears that her is forgiving and quite supportive. They plan on her having a termination of the on to state but due to her suicidal ideation they came to the hospital last night. She is not psychotic, she is not manic. She denies suicidal ideation. Bipolar disorder, type I, MRE manic PLAN: Discharge today. Follow-up Friday with Brittany at [facility]. F/U with DR Lawrence on FridayDec 16. 12/05/16 11:51 Pertinent Studies: none Procedures: none Patient Condition at Discharge: Stable Plan - Discharge Summary New Discharge Prescriptions: Continue Levothyroxine Sodium [Levoxyl] 50 mcg PO DAILY Discontinued LORazepam [Ativan] 1 mg PO BID PRN PRN Reason: Anxiety Discharge Medication List Levothyroxine Sodium [Levoxyl] 50 mcg PO DAILY 12/04/16 [History] Follow up Appointment(s)/Referral(s): [facility] [Outside] - 1 Week (w/ Brittany German on 12/09/16 @ 10am w/ Dr. Lawrence on 12/16/16 @ 9am ) Carlin Albarado MD [Primary Care Provider] - 1-2 days Discharge Disposition: HOME SELF-CARE
== END 2016-12-06 14:20 | disposition home or self-care (01) | DRG 781 ==
LOC: EC 19:27 → 3MHU 23:03
PROVIDERS: ADMIT Psychiatry & Neurology Addiction Medicine; ATTEND Psychiatry & Neurology Addiction Medicine
DX: O99.341 Other mental disorders complicating pregnancy, first trimester (principal); R45.851 Suicidal ideations; O99.321 Drug use complicating pregnancy, first trimester; O99.351 Diseases of the nervous system complicating pregnancy, first trimester; J45.909 Unspecified asthma, uncomplicated; O99.331 Smoking (tobacco) complicating pregnancy, first trimester; F17.200 Nicotine dependence, unspecified, uncomplicated; O99.281 Endocrine, nutritional and metabolic diseases complicating pregnancy, first trimester; O99.611 Diseases of the digestive system complicating pregnancy, first trimester; F41.9 Anxiety disorder, unspecified; E03.9 Hypothyroidism, unspecified; R11.0 Nausea; T42.4X6A Underdosing of benzodiazepines, initial encounter; T43.226A Underdosing of selective serotonin reuptake inhibitors, initial encounter; T38.1X6A Underdosing of thyroid hormones and substitutes, initial encounter; T43.596A Underdosing of other antipsychotics and neuroleptics, initial encounter; T42.6X6A Underdosing of other antiepileptic and sedative-hypnotic drugs, initial encounter; F40.240 Claustrophobia; F41.0 Panic disorder [episodic paroxysmal anxiety]; F12.19 Cannabis abuse with unspecified cannabis-induced disorder; O99.511 Diseases of the respiratory system complicating pregnancy, first trimester; G47.00 Insomnia, unspecified; E73.9 Lactose intolerance, unspecified; O99.711 Diseases of the skin and subcutaneous tissue complicating pregnancy, first trimester; L80 Vitiligo; R35.0 Frequency of micturition; M79.7 Fibromyalgia; O26.891 Other specified pregnancy related conditions, first trimester; G43.909 Migraine, unspecified, not intractable, without status migrainosus; F31.9 Bipolar disorder, unspecified; Z71.6 Tobacco abuse counseling; Z87.01 Personal history of pneumonia (recurrent); Z3A.01 Less than 8 weeks gestation of pregnancy; Z91.5 Personal history of self-harm; Z88.0 Allergy status to penicillin; Z88.2 Allergy status to sulfonamides; Z88.8 Allergy status to other drugs, medicaments and biological substances; Z91.048 Other nonmedicinal substance allergy status; Z91.14 Patient's other noncompliance with medication regimen; Z80.49 Family history of malignant neoplasm of other genital organs; Z80.8 Family history of malignant neoplasm of other organs or systems; Z81.8 Family history of other mental and behavioral disorders; Z83.79 Family history of other diseases of the digestive system; Z98.811 Dental restoration status; Z86.79 Personal history of other diseases of the circulatory system
CPT/HCPCS: 80053; 80306; 81001; 82075; 84443; 84702; 85027; 99285

== ENCOUNTER → 2016-12-25 | Outpatient (CLI) | payer OTHER ==
[2016-12-25 14:48] LABS: Basophils % (A) 1 %; CH 30.7; CHCM 32.6; Eosinophils # (A) 0.1 k/uL (0-0.7); Eosinophils % (A) 2 %; HCT 43.4 % (34.0-46.0); HDW 2.12; HGB 14.8 gm/dL (11.4-16.0); Luc # (Auto) 0.09; Luc % (Auto) 2; Lymphocytes # (A) 1.5 k/uL (1.0-4.8); Lymphocytes % (A) 34 %; MCH 32.3 pg (25.0-35.0); MCHC 34.1 g/dL (31.0-37.0); MCV 94.6 fL (80.0-100.0); Mean Platelet Volume 6.9; Monocytes # (A) 0.2 k/uL (0-1.0); Monocytes % (A) 5 %; Neutrophils # (A) 2.5 k/uL (1.3-7.7); Neutrophils % (A) 56 %; RBC 4.59 m/uL (3.80-5.40); WBC 4.4 k/uL (3.8-10.6)
[2016-12-25 15:01] LABS: ALT 19 U/L (9-52); AST 17 U/L (14-36); Alkaline Phosphatase 62 U/L (38-126); Anion Gap 10 mmol/L; Bilirubin, Delta 0.2 mg/dL (0.0-0.2); Blood Urea Nitrogen 16 mg/dL (7-17); Calcium 9.9 mg/dL (8.4-10.2); Carbon Dioxide 26 mmol/L (22-30); Chloride 105 mmol/L (98-107); Glucose 83 mg/dL (74-99); Non-African American GFR(MDRD) >60 (>60 ml/min/1.73 sqM); Potassium 4.4 mmol/L (3.5-5.1); Sodium 141 mmol/L (137-145); Total Bilirubin 0.6 mg/dL (0.2-1.3); Total Protein 7.1 g/dL (6.3-8.2)
== END | disposition home or self-care (01) ==
LOC: LABWHC1 14:04
PROVIDERS: ATTEND Psychiatry & Neurology Psychiatry
DX: F31.9 Bipolar disorder, unspecified (principal)
CPT/HCPCS: 36415; 80053; 80164; 82248; 85025

== ENCOUNTER → 2017-01-14 | Outpatient (CLI) | payer OTHER | END | disposition home or self-care (01) | LOC: LABWHC1 14:11 | PROVIDERS: ATTEND Internal Medicine | DX: E03.9 Hypothyroidism, unspecified (principal) | CPT/HCPCS: 36415; 84439; 84443 ==

== ENCOUNTER 2017-10-30 15:18 | Emergency (ER) | payer OTHER ==
[2017-10-30 15:36] VITALS: TEMP 98.7
--- NOTE | 2017-10-30 16:27 | ED ---
Fever HPI - General Chief Complaint: Fever Stated Complaint: Fever 100 Time Seen by Provider: 10/30/17 16:23 Source: patient, RN notes reviewed, old records reviewed Mode of arrival: ambulatory Limitations: no limitations - History of Present Illness Initial Comments: 27-year-old female presents with a intermittent fever past week. No other specific complaints. Complains of myalgias. She reports that diagnosed with a upper respiratory infection complaints azithromycin and subsequently developed thrush. She's been using nystatin as well as oral Diflucan Patient continues to have a little sore throat and intermittent fevers. No fever at this time. She does report she's had a mild cough. - Related Data Home Medications Medication Instructions Recorded Confirmed Levothyroxine Sodium [Levoxyl] 50 mcg PO DAILY 12/04/16 10/30/17 ARIPiprazole [Abilify] 10 mg PO DAILY 10/30/17 10/30/17 [place] 650 mg PO DAILY 10/30/17 10/30/17 Calcium Carbonate [Calcium] 600 mg PO DAILY 10/30/17 10/30/17 Cholecalciferol [Vitamin D3] 1,000 unit PO DAILY 10/30/17 10/30/17 Divalproex ER [Depakote ER] 500 mg PO DAILY 10/30/17 10/30/17 Ferrous Sulfate [Feosol] 325 mg PO DAILY 10/30/17 10/30/17 Uriah Carbonate 300 mg PO BID 10/30/17 10/30/17 Orphenadrine [Norflex] 100 mg PO Q12H 10/30/17 10/30/17 Vitamin B Complex 1 cap PO DAILY 10/30/17 10/30/17 clonazePAM [KlonoPIN] 0.5 mg PO BID 10/30/17 10/30/17 Allergies Allergy/AdvReac Type Severity Reaction Status Date / Time adhesive Allergy Rash/Hives Verified 10/30/17 16:51 amoxicillin [Amoxicillin] Allergy Rash/Hives Verified 10/30/17 16:51 hydrocortisone Allergy Rash/Hives Verified 10/30/17 16:51 sulfamethoxazole Allergy Rash/Hives Verified 10/30/17 16:51 [From Bactrim] trimethoprim [From Bactrim] Allergy Rash/Hives Verified 10/30/17 16:51 duloxetine [From Cymbalta] AdvReac Paradoxical Verified 10/30/17 16:51 Reaction olanzapine [From Zyprexa] AdvReac Paradoxical Verified 10/30/17 16:51 Reaction quetiapine [From Seroquel] AdvReac Paradoxical Verified 10/30/17 16:51 Reaction Review of Systems ROS Statement: Those systems with pertinent positive or pertinent negative responses have been documented in the HPI. ROS Other: All systems not noted in ROS Statement are negative. Past Medical History Past Medical History: Asthma, Fibromyalgia, Pneumonia, Skin Disorder, Syncope, Thyroid Disorder Additional Past Medical History / Comment(s): MIGRAINES(STATED HAS ENLARGED BLOOD VESSEL LT SIDE OF BRAIN), VILITIGO(AUTO IMMUNE SKIN DISEASE) LACTOSE INTOLERANCE. History of Any Multi-Drug Resistant Organisms: None Reported Past Surgical History: Adenoidectomy, Heart Catheterization Additional Past Surgical History / Comment(s): TILT TABLE TEST-08/2013, Dental surgary with two pulled teeth on the lower left jaw. Past Anesthesia/Blood Transfusion Reactions: Previous Problems w/ Anesthesia, Motion Sickness Additional Past Anesthesia/Blood Transfusion Reaction / Comment(s): B/P DROPS VERY LOW WITH EPIDURALS PER PT, CLAUSTERPHOBIA Past Psychological History: Anxiety, Bipolar, Panic Disorder Smoking Status: Current every day smoker Past Alcohol Use History: None Reported Past Drug Use History: Marijuana - Past Family History Mother Family Medical History: Cancer Additional Family Medical History / Comment(s): THYROID AND CERVICAL CAMCER, BIPOLAR. MATERNAL GRANDMOTHER HAD ULCERATIVE COLITIS. Father Additional Family Medical History / Comment(s): IBA, BIPOLAR General Exam - General Exam Comments Initial Comments: 7-year-old female. Alert and oriented. No acute distress. Limitations: no limitations General appearance: alert, in no apparent distress Head exam: Present: atraumatic, normocephalic, normal inspection Eye exam: Present: normal appearance, PERRL, EOMI. Absent: scleral icterus, conjunctival injection, periorbital swelling ENT exam: Present: normal exam, mucous membranes moist Neck exam: Present: normal inspection. Absent: tenderness, meningismus, lymphadenopathy Respiratory exam: Present: normal lung sounds bilaterally. Absent: respiratory distress, wheezes, rales, rhonchi, stridor Cardiovascular Exam: Present: regular rate, normal rhythm, normal heart sounds. Absent: systolic murmur, diastolic murmur, rubs, gallop, clicks GI/Abdominal exam: Present: soft, normal bowel sounds. Absent: distended, tenderness, guarding, rebound, rigid Extremities exam: Present: normal inspection, full ROM, normal capillary refill. Absent: tenderness, pedal edema, joint swelling, calf tenderness Back exam: Present: normal inspection Neurological exam: Present: alert, oriented X3, CN II-XII intact Course Vital Signs 10/30/17 10/30/17 15:34 17:53 Temperature 98.7 F Pulse Rate 105 H 76 Respiratory 20 18 Rate Blood Pressure 138/92 107/59 O2 Sat by Pulse 98 98 Oximetry Medical Decision Making - Medical Decision Making Patient is a well-appearing 27-year-old female with chief complaint of intermittent fevers and myalgias. She is no meningeal signs. Physical exam is RELATIVELY. Slight erythematous oropharynx. Rapid strep obtained as well as throat culture. I did check lab work checking for heterophile and chest x-ray and urinalysis. All these reviewed and unremarkable. I discussed most likely a viral syndrome. I did discuss that she felt with her primary care physician. All she Motrin Tylenol. Once symptoms seems to start to occur that she should return for further evaluation. Patient agrees to treatment plan will comply. Return parameters were discussed. - Lab Data Result diagrams: 10/30/17 17:00 10/30/17 17:00 Lab Results 10/30/17 10/30/17 10/30/17 Range/Units 15:35 17:00 17:00 WBC (3.8-10.6) k/uL RBC (3.80-5.40) m/uL Hgb (11.4-16.0) gm/dL Hct (34.0-46.0) % MCV (80.0-100.0) fL MCH (25.0-35.0) pg MCHC (31.0-37.0) g/dL RDW (11.5-15.5) % Plt Count (150-450) k/uL Neutrophils % % Lymphocytes % % Monocytes % % Eosinophils % % Basophils % % Neutrophils # (1.3-7.7) k/uL Lymphocytes # (1.0-4.8) k/uL Monocytes # (0-1.0) k/uL Eosinophils # (0-0.7) k/uL Basophils # (0-0.2) k/uL Sodium (137-145) mmol/L Potassium (3.5-5.1) mmol/L Chloride (98-107) mmol/L Carbon Dioxide (22-30) mmol/L Anion Gap mmol/L BUN (7-17) mg/dL Creatinine (0.52-1.04) mg/dL Est GFR (CKD-EPI)AfAm (>60 ml/min/1.73 sqM) Est GFR (CKD-EPI)NonAf (>60 ml/min/1.73 sqM) Glucose (74-99) mg/dL Calcium (8.4-10.2) mg/dL Total Bilirubin (0.2-1.3) mg/dL AST (14-36) U/L ALT (9-52) U/L Alkaline Phosphatase (38-126) U/L Total Protein (6.3-8.2) g/dL Albumin (3.5-5.0) g/dL Urine Color Yellow Urine Appearance Clear (Clear) Urine pH 8.5 H (5.0-8.0) Ur Specific [place] 1.012 (1.001-1.035) Urine Protein Negative (Negative) Urine Glucose (UA) Negative (Negative) Urine Ketones Negative (Negative) Urine Blood Negative (Negative) Urine Nitrite Negative (Negative) Urine Bilirubin Negative (Negative) Urine Urobilinogen <2.0 (<2.0) mg/dL Ur Leukocyte Esterase Negative (Negative) Urine HCG, Qual Not Detected (Not Detectd) Heterophile Antibody (Negative) Group A Strep Rapid Negative (Negative) 10/30/17 10/30/17 10/30/17 Range/Units 17:00 17:00 17:00 WBC 9.9 (3.8-10.6) k/uL RBC 5.08 (3.80-5.40) m/uL Hgb 15.8 (11.4-16.0) gm/dL Hct 48.5 H (34.0-46.0) % MCV 95.4 (80.0-100.0) fL MCH 31.0 (25.0-35.0) pg MCHC 32.6 (31.0-37.0) g/dL RDW 12.8 (11.5-15.5) % Plt Count 252 (150-450) k/uL Neutrophils % 72 % Lymphocytes % 20 % Monocytes % 5 % Eosinophils % 2 % Basophils % 0 % Neutrophils # 7.2 (1.3-7.7) k/uL Lymphocytes # 2.0 (1.0-4.8) k/uL Monocytes # 0.5 (0-1.0) k/uL Eosinophils # 0.2 (0-0.7) k/uL Basophils # 0.0 (0-0.2) k/uL Sodium 140 (137-145) mmol/L Potassium 4.3 (3.5-5.1) mmol/L Chloride 103 (98-107) mmol/L Carbon Dioxide 24 (22-30) mmol/L Anion Gap 13 mmol/L BUN 10 (7-17) mg/dL Creatinine 0.86 (0.52-1.04) mg/dL Est GFR (CKD-EPI)AfAm >90 (>60 ml/min/1.73 sqM) Est GFR (CKD-EPI)NonAf >90 (>60 ml/min/1.73 sqM) Glucose 85 (74-99) mg/dL Calcium 10.5 H (8.4-10.2) mg/dL Total Bilirubin 0.4 (0.2-1.3) mg/dL AST 22 (14-36) U/L ALT 18 (9-52) U/L Alkaline Phosphatase 54 (38-126) U/L Total Protein 7.7 (6.3-8.2) g/dL Albumin 5.1 H (3.5-5.0) g/dL Urine Color Urine Appearance (Clear) Urine pH (5.0-8.0) Ur Specific [place] (1.001-1.035) Urine Protein (Negative) Urine Glucose (UA) (Negative) Urine Ketones (Negative) Urine Blood (Negative) Urine Nitrite (Negative) Urine Bilirubin (Negative) Urine Urobilinogen (<2.0) mg/dL Ur Leukocyte Esterase (Negative) Urine HCG, Qual (Not Detectd) Heterophile Antibody Negative (Negative) Group A Strep Rapid (Negative) - Radiology Data Radiology results: report reviewed X-rays negative for any acute process. Disposition Clinical Impression: History of fever, Viral syndrome Disposition: HOME SELF-CARE Condition: Good Instructions: Fever in Adults (ED) Additional Instructions: Patient Advised to follow-up with primary care physician. Return to emergency department if any alarming signs or symptoms occur. Alternate Motrin and Tylenol for fever or pain. Is patient prescribed a controlled substance at d/c from ED?: No When asked, does pt state using other controlled substances?: No If prescribed controlled substance>3 days was MAPS reviewed?: No If opioid is for acute pain is fill amount 7 days or less?: No If Rx opioid, was Start Talking consent form obtained?: No Referrals: Carlin Albarado MD [Primary Care Provider] - 1-2 days Time of Disposition: 18:22
[2017-10-30 17:13] LABS: Basophils % (A) 0 %; Eosinophils # (A) 0.2 k/uL (0-0.7); Eosinophils % (A) 2 %; HCT 48.5 % (34.0-46.0); HGB 15.8 gm/dL (11.4-16.0); Lymphocytes % (A) 20 %; MCHC 32.6 g/dL (31.0-37.0); MCV 95.4 fL (80.0-100.0); Mean Platelet Volume 6.5; Monocytes # (A) 0.5 k/uL (0-1.0); Monocytes % (A) 5 %; Neutrophils # (A) 7.2 k/uL (1.3-7.7); Neutrophils % (A) 72 %; Platelet Count 252 k/uL (150-450); RBC 5.08 m/uL (3.80-5.40); RDW 12.8 % (11.5-15.5); WBC 9.9 k/uL (3.8-10.6)
[2017-10-30 17:15] LABS: Appearance,Urine Clear (Clear); Bilirubin,Urine Negative (Negative); Blood,Urine Negative (Negative); Color,Urine Yellow; Glucose,Urine (UA) Negative (Negative); Ketones,Urine Negative (Negative); Leukocyte Esterase,Urine Negative (Negative); Nitrite,Urine Negative (Negative); PH, Urine 8.5 (5.0-8.0); Protein,Urine Negative (Negative); Specific Gravity,Urine 1.012 (1.001-1.035); Urobilinogen,Urine <2.0 mg/dL (<2.0)
[2017-10-30 17:25] LABS: ALT 18 U/L (9-52); AST 22 U/L (14-36); Albumin 5.1 g/dL (3.5-5.0); Alkaline Phosphatase 54 U/L (38-126); Anion Gap 13 mmol/L; Blood Urea Nitrogen 10 mg/dL (7-17); Calcium 10.5 mg/dL (8.4-10.2); Carbon Dioxide 24 mmol/L (22-30); Chloride 103 mmol/L (98-107); Glucose 85 mg/dL (74-99); Potassium 4.3 mmol/L (3.5-5.1); Sodium 140 mmol/L (137-145); Total Bilirubin 0.4 mg/dL (0.2-1.3); Total Protein 7.7 g/dL (6.3-8.2)
--- NOTE | 2017-10-30 17:52 | XR ---
EXAMINATION TYPE: XR chest 2V DATE OF EXAM: 10/30/2017 COMPARISON: 02/14/2016 HISTORY: Fever for one week TECHNIQUE: Frontal and lateral views of the chest are obtained. FINDINGS: Heart and mediastinum are normal. Lungs are clear. Diaphragm is normal. Only thorax appear s normal. IMPRESSION: Normal chest. No change.
[2017-10-30 17:54] VITALS: BP 107/59; PULSE 76; RESP 18
== END 2017-10-30 18:59 | disposition home or self-care (01) ==
LOC: EC 15:18
DX: B34.9 Viral infection, unspecified (principal); M79.7 Fibromyalgia; E07.9 Disorder of thyroid, unspecified; F31.9 Bipolar disorder, unspecified; F17.200 Nicotine dependence, unspecified, uncomplicated; Z95.818 Presence of other cardiac implants and grafts; Z79.899 Other long term (current) drug therapy; Z91.048 Other nonmedicinal substance allergy status; Z88.0 Allergy status to penicillin; Z88.8 Allergy status to other drugs, medicaments and biological substances; Z88.2 Allergy status to sulfonamides
CPT/HCPCS: 36415; 71046; 80053; 81003; 81025; 85025; 86308; 87081; 87430; 99284

== ENCOUNTER 2022-01-11 09:32 | Emergency (ER) | payer OTHER ==
[2022-01-11 10:15] VITALS: RESP 18; TEMP 98.3
[2022-01-11 10:44] LABS: Appearance,Urine Cloudy (Clear); Bilirubin,Urine Negative (Negative); Blood,Urine Negative (Negative); Color,Urine Yellow; Glucose,Urine (UA) Negative (Negative); Ketones,Urine Negative (Negative); Leukocyte Esterase,Urine Trace (Negative); Mucus,Urine Rare /hpf; Nitrite,Urine Negative (Negative); Protein,Urine Negative (Negative); RBC,Urine 1 /hpf (0-5); Specific Gravity,Urine 1.018 (1.001-1.035); Squamous Epithelial Cell,Urine 18 /hpf (0-4); Urobilinogen,Urine <2.0 mg/dL (<2.0); WBC,Urine 1 /hpf (0-5)
--- NOTE | 2022-01-11 11:16 | ED ---
General Adult HPI - General Chief complaint: Abdominal Pain Stated complaint: Trouble urinating Time Seen by Provider: 01/11/22 10:33 Source: patient, RN notes reviewed, old records reviewed Mode of arrival: ambulatory Limitations: no limitations - History of Present Illness Initial comments: 31-year-old female presents to the emergency room ambulatory with complaints of right-sided back pain and urinary retention intermittently for the past couple of days. She says she also has nausea with chills. She is taking Motrin after having dental work done on Friday with a local anesthetic and was prescribed Motrin. She was seen at [facility] yesterday for her urinary retention and they did check her urine but did not check any blood work. She states in the past she's had urinary retention in the past with her lithium use 2 years ago however has not been on lithium for over 2 years. She is on many other antipsychotics she states and is concerned for kidney disease. -: days(s) (2) Severity scale (1-10): 7 Consistency: intermittent Associated Symptoms: fever/chills, nausea/vomiting, other (back pain) Treatments Prior to Arrival: other ([facility] yesterday) - Related Data Home Medications Medication Instructions Recorded Confirmed Levothyroxine Sodium [Levoxyl] 50 mcg PO DAILY 12/04/16 10/30/17 ARIPiprazole [Abilify] 10 mg PO DAILY 10/30/17 10/30/17 [place] 650 mg PO DAILY 10/30/17 10/30/17 Calcium Carbonate [Calcium] 600 mg PO DAILY 10/30/17 10/30/17 Cholecalciferol [Vitamin D3] 1,000 unit PO DAILY 10/30/17 10/30/17 Divalproex ER [Depakote ER] 500 mg PO DAILY 10/30/17 10/30/17 Ferrous Sulfate [Feosol] 325 mg PO DAILY 10/30/17 10/30/17 [place] Carbonate 300 mg PO BID 10/30/17 10/30/17 Orphenadrine [Norflex] 100 mg PO Q12H 10/30/17 10/30/17 Vitamin B Complex 1 cap PO DAILY 10/30/17 10/30/17 clonazePAM [KlonoPIN] 0.5 mg PO BID 10/30/17 10/30/17 Allergies Allergy/AdvReac Type Severity Reaction Status Date / Time adhesive Allergy Rash/Hives Verified 10/30/17 16:51 amoxicillin [Amoxicillin] Allergy Rash/Hives Verified 10/30/17 16:51 fluticasone [From Flonase] Allergy Anaphylaxis Verified 01/11/22 10:16 hydrocortisone Allergy Rash/Hives Verified 10/30/17 16:51 sulfamethoxazole Allergy Rash/Hives Verified 10/30/17 16:51 [From Bactrim] trimethoprim [From Bactrim] Allergy Rash/Hives Verified 10/30/17 16:51 duloxetine [From Cymbalta] AdvReac Paradoxical Verified 10/30/17 16:51 Reaction olanzapine [From Zyprexa] AdvReac Paradoxical Verified 10/30/17 16:51 Reaction quetiapine [From Seroquel] AdvReac Paradoxical Verified 10/30/17 16:51 Reaction Review of Systems ROS Statement: Those systems with pertinent positive or pertinent negative responses have been documented in the HPI. ROS Other: All systems not noted in ROS Statement are negative. Past Medical History Past Medical History: Asthma, Fibromyalgia, Pneumonia, Skin Disorder, Syncope, Thyroid Disorder Additional Past Medical History / Comment(s): MIGRAINES(STATED HAS ENLARGED BLOOD VESSEL LT SIDE OF BRAIN), VILITIGO(AUTO IMMUNE SKIN DISEASE) LACTOSE INTOLERANCE. History of Any Multi-Drug Resistant Organisms: None Reported Past Surgical History: Adenoidectomy, Cholecystectomy, Heart Catheterization, Hernia Repair Additional Past Surgical History / Comment(s): TILT TABLE TEST-08/2013, Dental surgary with two pulled teeth on the lower left jaw. 01/07/22 Pt had remainder of teeth removed. Past Anesthesia/Blood Transfusion Reactions: Previous Problems w/ Anesthesia, Motion Sickness Additional Past Anesthesia/Blood Transfusion Reaction / Comment(s): B/P DROPS VERY LOW WITH EPIDURALS PER PT, CLAUSTERPHOBIA Past Psychological History: Anxiety, Bipolar, Depression, Panic Disorder, PTSD Smoking Status: Current every day smoker Past Alcohol Use History: None Reported Past Drug Use History: Marijuana - Past Family History Mother Family Medical History: Cancer Additional Family Medical History / Comment(s): THYROID AND CERVICAL CAMCER, BIPOLAR. MATERNAL GRANDMOTHER HAD ULCERATIVE COLITIS. Father Additional Family Medical History / Comment(s): IBA, BIPOLAR General Exam Limitations: no limitations General appearance: alert, in no apparent distress Head exam: Present: atraumatic Eye exam: Absent: scleral icterus, conjunctival injection, periorbital swelling ENT exam: Present: mucous membranes dry, other (Sutures from multiple tooth extractions noted) Neck exam: Present: full ROM. Absent: tenderness, meningismus Respiratory exam: Present: normal lung sounds bilaterally. Absent: respiratory distress, wheezes, rales, rhonchi, stridor, chest wall tenderness, accessory muscle use Cardiovascular Exam: Present: regular rate GI/Abdominal exam: Present: soft. Absent: distended, tenderness, guarding, rebound, rigid Extremities exam: Present: normal capillary refill. Absent: pedal edema Back exam: Present: CVA tenderness (R). Absent: tenderness, CVA tenderness (L), rash noted Neurological exam: Present: alert, oriented X3, normal gait Psychiatric exam: Present: normal affect, normal mood Skin exam: Present: warm, dry, normal color. Absent: cyanosis, diaphoretic, petechiae, pallor Course Vital Signs 01/11/22 10:07 Temperature 98.3 F Pulse Rate 90 Respiratory 18 Rate Blood Pressure 132/83 O2 Sat by Pulse 96 Oximetry Medical Decision Making - Medical Decision Making Post void residual bladder scan shows 38 mL. Patient is afebrile vital signs are stable. Hemoglobin and hematocrit are stable there is no evidence of leukocytosis. BUN and creatinine are within normal limits with a GFR greater than 90. Urinalysis clear no evidence of infection, bacteria or blood. Patient was directed to continue her Motrin as prescribed by her dentist for her dental pain. Increase her fluid intake and follow-up with her primary care doctor. She is agreeable to this plan of care. Case discussed with Dr. Duque. - Lab Data Result diagrams: 01/11/22 11:07 01/11/22 11:07 Lab Results 01/11/22 01/11/22 01/11/22 Range/Units 10:27 11:07 11:07 WBC 6.4 (3.8-10.6) k/uL RBC 4.51 (3.80-5.40) m/uL Hgb 13.9 (11.4-16.0) gm/dL Hct 42.1 (34.0-46.0) % MCV 93.4 (80.0-100.0) fL MCH 30.8 (25.0-35.0) pg MCHC 33.0 (31.0-37.0) g/dL RDW 13.3 (11.5-15.5) % Plt Count 225 (150-450) k/uL MPV 7.3 Neutrophils % 77 % Lymphocytes % 17 % Monocytes % 4 % Eosinophils % 1 % Basophils % 0 % Neutrophils # 4.9 (1.3-7.7) k/uL Lymphocytes # 1.1 (1.0-4.8) k/uL Monocytes # 0.3 (0-1.0) k/uL Eosinophils # 0.1 (0-0.7) k/uL Basophils # 0.0 (0-0.2) k/uL Sodium 138 (137-145) mmol/L Potassium 4.1 (3.5-5.1) mmol/L Chloride 107 (98-107) mmol/L Carbon Dioxide 23 (22-30) mmol/L Anion Gap 8 mmol/L BUN 12 (7-17) mg/dL Creatinine 0.74 (0.52-1.04) mg/dL Est GFR (CKD-EPI)AfAm >90 (>60 ml/min/1.73 sqM) Est GFR (CKD-EPI)NonAf >90 (>60 ml/min/1.73 sqM) Glucose 95 (74-99) mg/dL Calcium 9.1 (8.4-10.2) mg/dL Urine Color Yellow Urine Appearance Cloudy H (Clear) Urine pH 7.0 (5.0-8.0) Ur Specific [place] 1.018 (1.001-1.035) Urine Protein Negative (Negative) Urine Glucose (UA) Negative (Negative) Urine Ketones Negative (Negative) Urine Blood Negative (Negative) Urine Nitrite Negative (Negative) Urine Bilirubin Negative (Negative) Urine Urobilinogen <2.0 (<2.0) mg/dL Ur Leukocyte Esterase Trace H (Negative) Urine RBC 1 (0-5) /hpf Urine WBC 1 (0-5) /hpf Ur Squamous Epith Cells 18 H (0-4) /hpf Urine Mucus Rare H (None) /hpf Disposition Clinical Impression: Dysuria, Back pain Disposition: HOME SELF-CARE Condition: Good Instructions (If sedation given, give patient instructions): Back Pain (ED) Additional Instructions: Continue Motrin as prescribed for dental pain. This will also help with any back pain that you're having. Increase her fluid intake. Return to the emergency room with any new or concerning symptoms including fevers or persistent nausea vomiting. Is patient prescribed a controlled substance at d/c from ED?: No Referrals: Grzegorz Boyd MD [Primary Care Provider] - 1-2 days Time of Disposition: 12:13
[2022-01-11 11:25] LABS: Basophils % (A) 0 %; Eosinophils # (A) 0.1 k/uL (0-0.7); Eosinophils % (A) 1 %; HCT 42.1 % (34.0-46.0); HGB 13.9 gm/dL (11.4-16.0); Lymphocytes # (A) 1.1 k/uL (1.0-4.8); Lymphocytes % (A) 17 %; MCH 30.8 pg (25.0-35.0); MCV 93.4 fL (80.0-100.0); Mean Platelet Volume 7.3; Monocytes # (A) 0.3 k/uL (0-1.0); Monocytes % (A) 4 %; Neutrophils # (A) 4.9 k/uL (1.3-7.7); Neutrophils % (A) 77 %; Platelet Count 225 k/uL (150-450); RBC 4.51 m/uL (3.80-5.40); RDW 13.3 % (11.5-15.5); WBC 6.4 k/uL (3.8-10.6)
[2022-01-11 12:00] LABS: African American GFR (CKD) >90 (>60 ml/min/1.73 sqM); Anion Gap 8 mmol/L; Blood Urea Nitrogen 12 mg/dL (7-17); Calcium 9.1 mg/dL (8.4-10.2); Carbon Dioxide 23 mmol/L (22-30); Chloride 107 mmol/L (98-107); Glucose 95 mg/dL (74-99); Non-African American GFR(CKD) >90 (>60 ml/min/1.73 sqM); Potassium 4.1 mmol/L (3.5-5.1); Sodium 138 mmol/L (137-145)
[2022-01-11 12:28] VITALS: BP 126/90; PULSE 87
== END 2022-01-11 12:27 | disposition home or self-care (01) ==
LOC: EC 09:32
DX: R30.0 Dysuria (principal); M54.9 Dorsalgia, unspecified; J45.909 Unspecified asthma, uncomplicated; E07.9 Disorder of thyroid, unspecified; F41.9 Anxiety disorder, unspecified; F31.9 Bipolar disorder, unspecified; F17.200 Nicotine dependence, unspecified, uncomplicated; F12.90 Cannabis use, unspecified, uncomplicated; Z91.048 Other nonmedicinal substance allergy status; Z88.0 Allergy status to penicillin; Z88.8 Allergy status to other drugs, medicaments and biological substances; Z88.2 Allergy status to sulfonamides; Z79.890 Hormone replacement therapy
CPT/HCPCS: 36415; 80048; 81001; 85025; 99284

== ENCOUNTER 2022-03-23 11:08 | Observation (INO) | payer OTHER ==
[2022-03-23] MEDS ORDERED: SODIUM CHLORIDE 0.9% 1,000 ML IV STA (11:18)
--- NOTE | 2022-03-23 11:23 | ED ---
General Adult HPI - General Chief complaint: Weakness Stated complaint: AMS Time Seen by Provider: 03/23/22 11:11 Source: EMS, RN notes reviewed Mode of arrival: EMS Limitations: no limitations - History of Present Illness Initial comments: Patient presents via EMS after having an "episode" at home. Patient states this is a third time this is happened since early February. Patient states that she's lost about 30 pounds since December. Patient states she was put on Effexor in January and then started having these problems early February. This is the third episode she has had. Patient has had 2 other emergency visits. Patient states she called her insurance provider today and they actually called the ambulance. Patient states that these episodes and her having trouble with speaking. There is no focal or unilateral weakness. Patient states she had a computed tomography scan at the other facility. She is scheduled to have an MRI done by her insurance company will not approve it. Patient denying any pain, No headache, no fever or chills, no changes in vision or hearing, no sore throat, SLOW speech, no neck pain, no chest pain or s hortness of breath, no abdominal pain, no nausea or vomiting, no changes in urination or bowel movements, no numbness or tingling, no extremity pain, no skin rashes or lesions. Past medical, surgical, social, and family history reviewed. Patient denying any illicit drug abuse other than marijuana. Denies alcohol use. Denies any other new medications. No overdoses. - Related Data Home Medications Medication Instructions Recorded Confirmed Levothyroxine Sodium [Levoxyl] 50 mcg PO DAILY 12/04/16 10/30/17 ARIPiprazole [Abilify] 10 mg PO DAILY 10/30/17 10/30/17 [place] 650 mg PO DAILY 10/30/17 10/30/17 Calcium Carbonate [Calcium] 600 mg PO DAILY 10/30/17 10/30/17 Cholecalciferol [Vitamin D3] 1,000 unit PO DAILY 10/30/17 10/30/17 Divalproex ER [Depakote ER] 500 mg PO DAILY 10/30/17 10/30/17 Ferrous Sulfate [Feosol] 325 mg PO DAILY 10/30/17 10/30/17 [place] Carbon[place] 300 mg PO BID 10/30/17 10/30/17 Orphenadrine [Norflex] 100 mg PO Q12H 10/30/17 10/30/17 Vitamin B Complex 1 cap PO DAILY 10/30/17 10/30/17 clonazePAM [KlonoPIN] 0.5 mg PO BID 10/30/17 10/30/17 Allergies Allergy/AdvReac Type Severity Reaction Status Date / Time adhesive Allergy Rash/Hives Verified 03/23/22 11:19 amoxicillin [Amoxicillin] Allergy Rash/Hives Verified 03/23/22 11:19 fluticasone [From Flonase] Allergy Anaphylaxis Verified 03/23/22 11:19 hydrocortisone Allergy Rash/Hives Verified 03/23/22 11:19 sulfamethoxazole Allergy Rash/Hives Verified 03/23/22 11:19 [From Bactrim] trimethoprim [From Bactrim] Allergy Rash/Hives Verified 03/23/22 11:19 duloxetine [From Cymbalta] AdvReac Paradoxical Verified 03/23/22 11:19 Reaction olanzapine [From Zyprexa] AdvReac Paradoxical Verified 03/23/22 11:19 Reaction quetiapine [From Seroquel] AdvReac Paradoxical Verified 03/23/22 11:19 Reaction Review of Systems ROS Statement: Those systems with pertinent positive or pertinent negative responses have been documented in the HPI. ROS Other: All systems not noted in ROS Statement are negative. Past Medical History Past Medical History: Asthma, Fibromyalgia, Pneumonia, Skin Disorder, Syncope, Thyroid Disorder Additional Past Medical History / Comment(s): MIGRAINES(STATED HAS ENLARGED BLOOD VESSEL LT SIDE OF BRAIN), VILITIGO(AUTO IMMUNE SKIN DISEASE) LACTOSE INTOLERANCE. History of Any Multi-Drug Resistant Organisms: None Reported Past Surgical History: Adenoidectomy, Cholecystectomy, Heart Catheterization, Hernia Repair Additional Past Surgical History / Comment(s): TILT TABLE TEST-08/2013, Dental surgary with two pulled teeth on the lower left jaw. 01/07/22 Pt had remainder of teeth removed. Past Anesthesia/Blood Transfusion Reactions: Previous Problems w/ Anesthesia, Motion Sickness Additional Past Anesthesia/Blood Transfusion Reaction / Comment(s): B/P DROPS VERY LOW WITH EPIDURALS PER PT, CLAUSTERPHOBIA Past Psychological History: Anxiety, Bipolar, Depression, Panic Disorder, PTSD Smoking Status: Current every day smoker Past Alcohol Use History: None Reported Past Drug Use History: Marijuana - Past Family History Mother Family Medical History: Cancer Additional Family Medical History / Comment(s): THYROID AND CERVICAL CAMCER, BIPOLAR. MATERNAL GRANDMOTHER HAD ULCERATIVE COLITIS. Father Additional Family Medical History / Comment(s): IBA, BIPOLAR General Exam Limitations: no limitations General appearance: alert, in distress (Mild) Head exam: Present: atraumatic, normocephalic, normal inspection Eye exam: Present: normal appearance, PERRL, EOMI. Absent: scleral icterus, conjunctival injection, periorbital swelling ENT exam: Present: normal exam, normal oropharynx, mucous membranes moist, normal external ear exam. Absent: mucous membranes dry Neck exam: Present: normal inspection. Absent: tenderness, meningismus, lymphadenopathy Respiratory exam: Present: normal lung sounds bilaterally. Absent: respiratory distress, wheezes, rales, rhonchi, stridor, chest wall tenderness, accessory muscle use, decreased breath sounds, prolonged expiratory Cardiovascular Exam: Present: regular rate, normal rhythm, normal heart sounds. Absent: systolic murmur, diastolic murmur, rubs, gallop, clicks GI/Abdominal exam: Present: soft, normal bowel sounds. Absent: distended, tenderness, guarding, rebound, rigid Extremities exam: Present: normal inspection, full ROM, normal capillary refill. Absent: tenderness, pedal edema, joint swelling, calf tenderness Back exam: Present: normal inspection Neurological exam: Present: alert, oriented X3, CN II-XII intact, reflexes normal. Absent: altered, motor sensory deficit Expanded Neurological exam: Present: other (This patient appears to be slow to respond does not appear to have any focal neurologic deficits. Answering questions when queried.) Patient oriented to: Present: person, place, time Cranial nerves: EOM's Intact: Normal Cerebellar function: Finger to Nose: Normal, Heel to [place]: Normal Sensory exam: Upper Extremity Light Touch: Normal, Lower Extremity Light Touch: Normal Motor strength exam: RUE: 4, LUE: 4, RLE: 4, LLE: 4 Eye Response: (4) open spontaneously Motor Response: (6) obeys commands Verbal Response: (5) oriented Jud Total: 15 Psychiatric exam: Present: normal affect, normal mood Skin exam: Present: warm, dry, intact, normal color. Absent: rash Course Vital Signs 11/26/22 11/26/22 11/26/22 11:15 11:20 12:00 Pulse Rate 90 72 Respiratory 16 16 16 Rate Blood Pressure 130/96 130/96 128/91 O2 Sat by Pulse 100 98 100 Oximetry 03/23/22 03/23/22 13:00 14:00 Pulse Rate 68 65 Respiratory 18 18 Rate Blood Pressure 118/83 115/85 O2 Sat by Pulse 97 96 Oximetry - Reevaluation(s) Reevaluation #1: 03/23/22 13:38 Patient reevaluated and is still quite sedate. Patient answering all questions but is slow to respond. Patient appears to have some form of global weakness. Otherwise the patient is alert and oriented 4. Cranial nerves II through XII are intact. No evidence of focal deficit. The case was discussed in detail with ED attending physician. Presentation, findings, treatment plan discussed in detail. Reevaluation #2: 03/23/22 14:14 Patient unable to ambulate safely due to generalized weakness - Consultations Consultation #1: Case discussed in detail with Dr. Joyner from [facility]. Patient will be admitted for observation with neurology consultation. EKG Findings - EKG Comments: EKG Findings:: EKG done at 11:22 AM and read by the ED attending physician reveals no evidence of acute EKG changes. Normal axis. Normal intervals. Rate 74. No comparison study Medical Decision Making - Medical Decision Making Patient slow to respond and appears generally weak. No focal neurologic deficits. The patient's presentation is not definitive. There is no evidence of focal neurologic deficit. Patient has general weakness. Possibility of electrolyte disturbance. Possibility of conversion disorder. Other neurological abnormalities possible to include postictal state. Patient states that she was previously worked up for epilepsy. Patient admitted for observation to [facility] for further evaluation The case was discussed in detail with ED attending physician. Presentation, findings, treatment plan discussed in detail. The resident Dr. Rachel SILVER Documentation: I, personally, had a discussion with the patient concerning their presumed diagnoses and my recommendations regarding available options for treatment. The patient understand the risks and benefits of the treatment options presented and also understands the risks of not following these recommendations and leaving the hospital against medical advice. The patient clearly has capacity to make an informed decision regarding further treatment at this time and is electing to sign out against my medical advice. Follow up arrangements were discussed with the patient and the patient was advised to consider returning to the emergency department or seeking further care should they have a worsening of their medical condition, if they should develop new or concerning symptoms, or if they should change their mind about receiving further medical care. - Lab Data Result diagrams: 03/23/22 11:21 03/23/22 11:21 Lab Results 03/23/22 03/23/22 03/23/22 Range/Units 11:21 11:21 11:21 WBC 2.6 L (3.8-10.6) k/uL RBC 4.57 (3.80-5.40) m/uL Hgb 14.0 (11.4-16.0) gm/dL Hct 42.1 (34.0-46.0) % MCV 92.1 (80.0-100.0) fL MCH 30.5 (25.0-35.0) pg MCHC 33.1 (31.0-37.0) g/dL RDW 12.5 (11.5-15.5) % Plt Count 198 (150-450) k/uL MPV 7.6 Neutrophils % 49 % Lymphocytes % 40 % Monocytes % 6 % Eosinophils % 2 % Basophils % 1 % Neutrophils # 1.3 (1.3-7.7) k/uL Lymphocytes # 1.0 (1.0-4.8) k/uL Monocytes # 0.2 (0-1.0) k/uL Eosinophils # 0.1 (0-0.7) k/uL Basophils # 0.0 (0-0.2) k/uL PT 11.9 (9.0-12.0) sec INR 1.1 (<1.2) Sodium 138 (137-145) mmol/L Potassium 5.1 (3.5-5.1) mmol/L Chloride 109 H (98-107) mmol/L Carbon Dioxide 25 (22-30) mmol/L Anion Gap 4 mmol/L BUN 12 (7-17) mg/dL Creatinine 0.72 (0.52-1.04) mg/dL Est GFR (CKD-EPI)AfAm >90 (>60 ml/min/1.73 sqM) Est GFR (CKD-EPI)NonAf >90 (>60 ml/min/1.73 sqM) Glucose 77 (74-99) mg/dL Calcium 9.0 (8.4-10.2) mg/dL Magnesium 1.7 (1.6-2.3) mg/dL Total Bilirubin 0.3 (0.2-1.3) mg/dL AST 22 (14-36) U/L ALT 14 (4-34) U/L Alkaline Phosphatase 72 (38-126) U/L Ammonia (<30) umol/L Troponin I (0.000-0.034) ng/mL Total Protein 6.4 (6.3-8.2) g/dL Albumin 4.2 (3.5-5.0) g/dL TSH 0.897 (0.465-4.680) mIU/L HCG, Qual Not Detected Tabiona <0.2 mmol/L 03/23/22 03/23/22 Range/Units 11:21 11:21 WBC (3.8-10.6) k/uL RBC (3.80-5.40) m/uL Hgb (11.4-16.0) gm/dL Hct (34.0-46.0) % MCV (80.0-100.0) fL MCH (25.0-35.0) pg MCHC (31.0-37.0) g/dL RDW (11.5-15.5) % Plt Count (150-450) k/uL MPV Neutrophils % % Lymphocytes % % Monocytes % % Eosinophils % % Basophils % % Neutrophils # (1.3-7.7) k/uL Lymphocytes # (1.0-4.8) k/uL Monocytes # (0-1.0) k/uL Eosinophils # (0-0.7) k/uL Basophils # (0-0.2) k/uL PT (9.0-12.0) sec INR (<1.2) Sodium (137-145) mmol/L Potassium (3.5-5.1) mmol/L Chloride (98-107) mmol/L Carbon Dioxide (22-30) mmol/L Anion Gap mmol/L BUN (7-17) mg/dL Creatinine (0.52-1.04) mg/dL Est GFR (CKD-EPI)AfAm (>60 ml/min/1.73 sqM) Est GFR (CKD-EPI)NonAf (>60 ml/min/1.73 sqM) Glucose (74-99) mg/dL Calcium (8.4-10.2) mg/dL Magnesium (1.6-2.3) mg/dL Total Bilirubin (0.2-1.3) mg/dL AST (14-36) U/L ALT (4-34) U/L Alkaline Phosphatase (38-126) U/L Ammonia <9 (<30) umol/L Troponin I <0.012 (0.000-0.034) ng/mL Total Protein (6.3-8.2) g/dL Albumin (3.5-5.0) g/dL TSH (0.465-4.680) mIU/L HCG, Qual Tabiona mmol/L - Radiology Data I did interpret the CT of the brain with and without contrast as well as a CT of the neck and head angiography. No definitive acute changes as interpreted by me. Radiology report reports cannot exclude focal stenosis in the area of dense circumferential calcification in the proximal left vertebral artery. Review chest x-ray reviewed by me reveals no evidence of acute pathology. Concur with radiology interpretations. Disposition Clinical Impression: Altered mental status, Generalized weakness Disposition: Left Against Medical Advice Time of Disposition: 13:45 Decision to Admit Reason: Admit from EC
[2022-03-23 11:33] LABS: Basophils % (A) 1 %; Eosinophils # (A) 0.1 k/uL (0-0.7); Eosinophils % (A) 2 %; HCT 42.1 % (34.0-46.0); Lymphocytes % (A) 40 %; MCH 30.5 pg (25.0-35.0); MCHC 33.1 g/dL (31.0-37.0); MCV 92.1 fL (80.0-100.0); Mean Platelet Volume 7.6; Monocytes # (A) 0.2 k/uL (0-1.0); Monocytes % (A) 6 %; Neutrophils # (A) 1.3 k/uL (1.3-7.7); Neutrophils % (A) 49 %; Platelet Count 198 k/uL (150-450); RBC 4.57 m/uL (3.80-5.40); RDW 12.5 % (11.5-15.5); WBC 2.6 k/uL (3.8-10.6)
[2022-03-23 11:38] LABS: INR 1.1 (<1.2); Prothrombin Time 11.9 sec (9.0-12.0)
[2022-03-23 11:42] LABS: HCG,Qualitative Serum Not Detected
--- NOTE | 2022-03-23 12:12 | XR ---
EXAMINATION TYPE: XR chest 1V portable DATE OF EXAM: 03/23/2022 COMPARISON: 10/30/2017 HISTORY: Altered mental status TECHNIQUE: Single frontal view of the chest is obtained. FINDINGS: There is no focal air space opacity, pleural effusion, or pneumothorax seen. The cardiac silhouette size is within normal limits. The osseous structures are intact. IMPRESSION: No acute process.
--- NOTE | 2022-03-23 12:28 | CT ---
EXAMINATION TYPE: CT brain wo con DATE OF EXAM: 03/23/2022 COMPARISON: None HISTORY: AMS. Pt states she has enlarged vessel LT side, c/o headaches. CT DLP: 1133.6 mGycm. Automated Exposure Control for Dose Reduction was Utilized. TECHNIQUE: CT scan of the head is performed without contrast. FINDINGS: There is no acute intracranial hemorrhage, mass effect, or midline shift identified. The ventricles and sulci are within normal limits in size. The globes are intact and the visualized sin uses are clear. IMPRESSION: No acute intracranial hemorrhage, mass effect, or midline shift is seen.
--- NOTE | 2022-03-23 12:47 | CT ---
EXAMINATION TYPE: CT angio head neck DATE OF EXAM: 03/23/2022 HISTORY: AMS. Pt states she has enlarged vessel LT side, c/o headaches. C/o dizziness, weakness, legt hargy COMPARISON: CT DLP: 443.1 mGycm. Automated Exposure Control for Dose Reduction was Utilized. TECHNIQUE: CTA scan of the head and neck is performed with IV Contrast, patient injected with 65 mL of Isovue 370, axial images are obtained, coronal and sagittal reformatted images are reviewed. 3D re constructed images are created on an independent workstation and reviewed. FINDINGS: The brachiocephalic origins are widely patent. There is no significant stenosis of the common or internal carotid artery within the neck. There is no significant stenosis of the right vertebral artery. There is a focal area within the proximal left vertebral artery with circumferential calcification. T he possibility of significant narrowing in this segment cannot be entirely excluded. Intracranially, there is no segmental occlusion, sizable aneurysm sac or vascular malformation. IMPRESSION: 1. No significant abnormality intracranially. 2. No common or internal carotid artery stenosis within the neck. 3. Cannot exclude focal stenosis in the area of dense circumferential calcification in the proximal l eft vertebral artery. NASCET criteria was used in interpretation of this exam?
[2022-03-23 12:54] LABS: ALT 14 U/L (4-34); AST 22 U/L (14-36); African American GFR (CKD) >90 (>60 ml/min/1.73 sqM); Albumin 4.2 g/dL (3.5-5.0); Alkaline Phosphatase 72 U/L (38-126); Anion Gap 4 mmol/L; Blood Urea Nitrogen 12 mg/dL (7-17); Carbon Dioxide 25 mmol/L (22-30); Chloride 109 mmol/L (98-107); Glucose 77 mg/dL (74-99); Magnesium 1.7 mg/dL (1.6-2.3); Non-African American GFR(CKD) >90 (>60 ml/min/1.73 sqM); Potassium 5.1 mmol/L (3.5-5.1); Sodium 138 mmol/L (137-145); Total Bilirubin 0.3 mg/dL (0.2-1.3); Total Protein 6.4 g/dL (6.3-8.2)
[2022-03-23 13:25] LABS: Lithium <0.2 mmol/L
[2022-03-23 14:08] VITALS: BP 115/85; PULSE 65; RESP 18
[2022-03-23] MEDS ORDERED: ACETAMINOPHEN TAB 325 MG TAB PO PRN (14:10)
[2022-03-23] MEDS ORDERED: NALOXONE 0.4 MG/ML 1 ML VIAL IV PRN ×2 (14:10→14:56)
[2022-03-23] MEDS ORDERED: hydrOXYzine pamoate 25 MG CAP PO PRN (14:58)
[2022-03-23] MEDS ORDERED: ALBUTEROL HFA INHALER INHALATION PRN (14:58)
[2022-03-23] MEDS ORDERED: IPRATROPIUM-ALBUTEROL 3 ML NEB INHALATION PRN (14:58)
--- NOTE | 2022-03-23 15:04 | P.HPIM ---
History of Present Illness H&P Date: 03/23/22 Chief Complaint: weakness 31-year-old female who presented to the emergency department for slurred speech which has been happening in "episodes". She states that she used to have them infrequently in the past few years but over the past several weeks they have been becoming more and more frequent. Symptoms have been constant over the past several days. He has history of bipolar disorder and was put on Effexor in January and then started having worsening symptoms early February. She stated that she was evaluated by neurologist in the past who ordered an MRI but it was not done due to insurance issues. Patient stated that she is having overall weakness and is hard for her to ambulate. She is also having left-sided headaches worsening over the past several weeks, throbbing and constant in the same time. She threw up one time but not recently. Denied having fevers or flulike illness. No changes in vision or hearing, no neck pain, no chest pain or shortness of breath, no abdominal pain. Patient has had 2 other emergency visits earlier this month. Patient denying any illicit drug abuse other than marijuana. Denies alcohol use. Evaluation in the emergency department revealed normal vital signs. White count 2.6, TSH within normal limits, hCG negative, LFTs okay, lithium less than 0.2. Patient was admitted for further evaluation by neurology and psychiatry. Past Medical History Past Medical History: Asthma, Fibromyalgia, Pneumonia, Skin Disorder, Syncope, Thyroid Disorder Additional Past Medical History / Comment(s): MIGRAINES(STATED HAS ENLARGED BLOOD VESSEL LT SIDE OF BRAIN), VILITIGO(AUTO IMMUNE SKIN DISEASE) LACTOSE INTOLERANCE. History of Any Multi-Drug Resistant Organisms: None Reported Past Surgical History: Adenoidectomy, Cholecystectomy, Heart Catheterization, Hernia Repair Additional Past Surgical History / Comment(s): TILT TABLE TEST-08/2013, Dental surgary with two pulled teeth on the lower left jaw. 01/07/22 Pt had remainder of teeth removed. Past Anesthesia/Blood Transfusion Reactions: Previous Problems w/ Anesthesia, Motion Sickness Additional Past Anesthesia/Blood Transfusion Reaction / Comment(s): B/P DROPS VERY LOW WITH EPIDURALS PER PT, CLAUSTERPHOBIA Past Psychological History: Anxiety, Bipolar, Depression, Panic Disorder, PTSD Smoking Status: Current every day smoker Past Alcohol Use History: None Reported Past Drug Use History: Marijuana - Past Family History Mother Family Medical History: Cancer Additional Family Medical History / Comment(s): THYROID AND CERVICAL CAMCER, BIPOLAR. MATERNAL GRANDMOTHER HAD ULCERATIVE COLITIS. Father Additional Family Medical History / Comment(s): IBA, BIPOLAR Medications and Allergies Home Medications Medication Instructions Recorded Confirmed Type Levothyroxine Sodium [Levoxyl] 50 mcg PO DAILY 12/04/16 03/23/22 History clonazePAM [KlonoPIN] 0.5 mg PO BID 10/30/17 03/23/22 History Albuterol Sulfate [Proair Hfa] 2 puff INHALATION RT-QID PRN 03/23/22 03/23/22 History Beclomethasone Dipropionate [Qvar 1 puff INHALATION RT-BID 03/23/22 03/23/22 History 80mcg Redihaler] Desvenlafaxine [Desvenlafaxine ER] 50 mg PO DAILY 03/23/22 03/23/22 History Famotidine [Pepcid] 20 mg PO DAILY 03/23/22 03/23/22 History Fexofenadine HCl 180 mg PO DAILY 03/23/22 03/23/22 History Ipratropium-Albuterol Nebulize 3 ml INHALATION RT-QID PRN 03/23/22 03/23/22 History [Duoneb 0.5 mg-3 mg/3 ml Soln] Nicotine Polacrilex [Quit 4] 4 mg BUCCAL DIRECTED PRN 03/23/22 03/23/22 History OXcarbazepine [Trileptal] 150 mg PO BID 03/23/22 03/23/22 History OXcarbazepine [Trileptal] 300 mg PO BID 03/23/22 03/23/22 History Venlafaxine HCl ER [Effexor Xr] 37.5 mg PO DAILY 03/23/22 03/23/22 History hydrOXYzine pamoate [hydrOXYzine 25 mg PO BID PRN 03/23/22 03/23/22 History PAMOATE] Allergies Allergy/AdvReac Type Severity Reaction Status Date / Time adhesive Allergy Rash/Hives Verified 03/23/22 14:48 amoxicillin [Amoxicillin] Allergy Rash/Hives Verified 03/23/22 14:48 fluticasone [From Flonase] Allergy Anaphylaxis Verified 03/23/22 14:48 hydrocortisone Allergy Rash/Hives Verified 03/23/22 14:48 sulfamethoxazole Allergy Rash/Hives Verified 03/23/22 14:48 [From Bactrim] trimethoprim [From Bactrim] Allergy Rash/Hives Verified 03/23/22 14:48 duloxetine [From Cymbalta] AdvReac Paradoxical Verified 03/23/22 14:48 Reaction olanzapine [From Zyprexa] AdvReac Paradoxical Verified 03/23/22 14:48 Reaction quetiapine [From Seroquel] AdvReac Paradoxical Verified 03/23/22 14:48 Reaction Physical Exam Vitals: Vital Signs Pulse Resp BP Pulse Ox 03/23/22 14:00 65 18 115/85 96 03/23/22 13:00 68 18 118/83 97 03/23/22 12:00 72 16 128/91 100 03/23/22 11:20 16 130/96 98 03/23/22 11:15 90 16 130/96 100 Intake and Output 03/22/22 03/23/22 03/23/22 22:59 06:59 14:59 Other: Weight 67.585 kg Constitutional: No acute distress, conversant, pleasant Eyes:Anicteric sclerae, moist conjunctiva, no lid-lag, PERRLA, ENMT: Oropharynx clear, no erythema, exudates Neck: Supple, FROM, no masses, or JVD, No carotid bruits, No thyromegaly Lungs: Clear to auscultation, Clear to percussion, Normal respiratory effort, no accessory muscle use Cardiovascular: Heart regular in rate and rhythm, No murmurs, gallops, or rubs, No peripheral edema Abdominal: Soft, Nontender, no guarding, rebound or rigidity, Normoactive bowel sounds, No hepatomegaly, No splenomegaly, No palpable mass Skin: Normal temperature, tone, texture, turgor, no induration, No subcutaneous nodules, No rash, lesions, No ulcers Extremities: No digital cyanosis, No clubbing, Pedal pulses intact and symmetrical, Radial pulses intact and symmetrical, No calf tenderness Psychiatric: Alert and oriented to person, place and time, appropriate affect, intact judgement Neuro: Muscles Strength 5/5 in all 4 extremities, Sensation to light touch grossly present throughout, Cranial nerves II-XII grossly intact, no focal sensory deficits Results CBC & Chem 7: 03/23/22 11:21 03/23/22 11:21 Labs: Abnormal Lab Results - Last 24 Hours (Table) 03/23/22 03/23/22 Range/Units 11:21 11:21 WBC 2.6 L (3.8-10.6) k/uL Chloride 109 H (98-107) mmol/L Assessment and Plan Plan: Slurred speech Adult failure to thrive General weakness Likely stress related Consult neurology and psychiatry Neuro checks MRI brain Migraine Tylenol prn Per neurology Chronic Asthma, Fibromyalgia, Hypothyroidism All stable resume meds DVT prophylaxis Low risk ambulatory.
[2022-03-23] MEDS ORDERED: HEPARIN SODIUM,PORCINE/PF 5,000 UNIT/0.5 ML SYRINGE SQ SCH (16:00)
[2022-03-23] MEDS ORDERED: BECLOMETHASONE 80 MCG IH SCH (20:00)
[2022-03-23] MEDS ORDERED: clonazePAM 0.5 MG TAB PO SCH (21:00)
[2022-03-23] MEDS ORDERED: OXcarbazepine 150 MG TAB PO SCH (21:00)
[2022-03-23] MEDS ORDERED: OXcarbazepine 300 MG TAB PO SCH (21:00)
[2022-03-24] MEDS ORDERED: LEVOTHYROXINE 50 MCG TAB PO SCH (06:30)
[2022-03-24] MEDS ORDERED: LORATADINE 10 MG TAB PO SCH (09:00)
[2022-03-24] MEDS ORDERED: FAMOTIDINE 20 MG TAB PO SCH (09:00)
[2022-03-24] MEDS ORDERED: VENLAFAXINE HCL ER 37.5 MG CAP PO SCH (09:00)
[2022-03-24] MEDS ORDERED: DESVENLAFAXINE SUCCINATE 50 MG TAB.ER.24H PO SCH (09:00)
== END 2022-03-23 14:58 | disposition left against medical advice (07) ==
LOC: SUPCPDRO 11:08 → EC 11:08 → 5NMEDONC 14:20
PROVIDERS: ADMIT Internal Medicine; ATTEND Internal Medicine
DX: R41.82 Altered mental status, unspecified (principal); R53.1 Weakness; R47.81 Slurred speech; R62.7 Adult failure to thrive; Z53.29 Procedure and treatment not carried out because of patient's decision for other reasons; J45.909 Unspecified asthma, uncomplicated; M79.7 Fibromyalgia; F31.9 Bipolar disorder, unspecified; F41.0 Panic disorder [episodic paroxysmal anxiety]; F43.10 Post-traumatic stress disorder, unspecified; G43.909 Migraine, unspecified, not intractable, without status migrainosus; E03.9 Hypothyroidism, unspecified; F17.200 Nicotine dependence, unspecified, uncomplicated; Z79.890 Hormone replacement therapy; Z79.899 Other long term (current) drug therapy; Z88.0 Allergy status to penicillin; Z88.2 Allergy status to sulfonamides
CPT/HCPCS: 96360; 96361; 99285; 36415; 93005; 80053; 84443; 82140; 80178; 83735; 84484; 85025; 85610; 86140; 84703; 71045; 70496; 70450; 70498; G0378; Q9967

== ENCOUNTER 2022-05-21 10:57 | Emergency (ER) | payer OTHER ==
--- NOTE | 2022-05-21 10:58 | ED ---
General Adult HPI <Yanelis Garnica - Last Filed: 05/21/22 10:58> <Romy Barnett - Last Filed: 05/21/22 22:08> - General Stated complaint: dizziness, ringing in ears Time Seen by Provider: 05/21/22 10:58 - History of Present Illness Initial comments: 31-year-old female presents to the emergency department via EMS with a chief complaint of dizziness and "ringing in her ears " x 10 days. Patient denies headache or vision changes. (Yanelis Garnica) 31-year-old female with past medical history of fibromyalgia, migraines, chronic vertigo who presents to the emergency department with vertiginous symptoms. She reports that she has been dizzy since last February. She was seen in the emergency department and had a CT performed which demonstrated an abnormal blood vessel in her brain. They recommended she be admitted to the hospital however the patient left AGAINST MEDICAL ADVICE. She states she has been following the outpatient setting with her neurologist Dr. Gipson. He has referred her to Dr. Yi. She states that her appointment is not until May and she keeps having chronic dizziness. This current episode became worse 10 days ago. She describes pressure in her left ear with ringing. Also reports 2 room spinning around her. She has not taken any medications at home for her symptoms. She denies any headaches or visual changes. No increase in seizure activity. No fevers. All other alleviating, precipitating or modifying factors (Romy Barnett) - Related Data Home Medications Medication Instructions Recorded Confirmed Levothyroxine Sodium [Levoxyl] 50 mcg PO DAILY 12/04/16 05/21/22 clonazePAM [KlonoPIN] 0.5 mg PO BID 10/30/17 05/21/22 Albuterol Sulfate [Proair Hfa] 2 puff INHALATION RT-QID PRN 03/23/22 05/21/22 Beclomethasone Dipropionate [Qvar 1 puff INHALATION RT-BID 03/23/22 05/21/22 80mcg Redihaler] Desvenlafaxine [Desvenlafaxine ER] 50 mg PO DAILY 03/23/22 05/21/22 Fexofenadine HCl 180 mg PO DAILY 03/23/22 05/21/22 Ipratropium-Albuterol Nebulize 3 ml INHALATION RT-QID PRN 03/23/22 05/21/22 [Duoneb 0.5 mg-3 mg/3 ml Soln] Nicotine Polacrilex [Quit 4] 4 mg BUCCAL DIRECTED PRN 03/23/22 05/21/22 OXcarbazepine [Trileptal] 150 mg PO BID 03/23/22 05/21/22 OXcarbazepine [Trileptal] 300 mg PO BID 03/23/22 05/21/22 hydrOXYzine pamoate [hydrOXYzine 25 mg PO BID 03/23/22 05/21/22 PAMOATE] Butalb/APAP/Caff 50-325-40Mg 1 tab PO DAILY PRN 05/21/22 05/21/22 [Fioricet 50-325-40] Previous Rx's Medication Instructions Recorded Furosemide [Lasix] 20 mg PO DAILY #5 tab 05/21/22 predniSONE [Deltasone] 20 mg PO BID #10 tab 05/21/22 Allergies Allergy/AdvReac Type Severity Reaction Status Date / Time adhesive Allergy Rash/Hives Verified 05/21/22 14:30 amoxicillin [Amoxicillin] Allergy Rash/Hives Verified 05/21/22 14:30 fluticasone [From Flonase] Allergy Anaphylaxis Verified 05/21/22 14:30 hydrocortisone Allergy Rash/Hives Verified 05/21/22 14:30 sulfamethoxazole Allergy Rash/Hives Verified 05/21/22 14:30 [From Bactrim] trimethoprim [From Bactrim] Allergy Rash/Hives Verified 05/21/22 14:30 duloxetine [From Cymbalta] AdvReac Paradoxical Verified 05/21/22 14:30 Reaction olanzapine [From Zyprexa] AdvReac Paradoxical Verified 05/21/22 14:30 Reaction quetiapine [From Seroquel] AdvReac Paradoxical Verified 05/21/22 14:30 Reaction Review of Systems ROS Other: All systems not noted in ROS Statement are negative. <Yanelis Garnica - Last Filed: 05/21/22 10:58> ROS Other: All systems not noted in ROS Statement are negative. <Romy Barnett - Last Filed: 05/21/22 22:08> ROS Statement: Those systems with pertinent positive or pertinent negative responses have been documented in the HPI. Past Medical History Past Medical History: Asthma, Fibromyalgia, Pneumonia, Skin Disorder, Syncope, Thyroid Disorder Additional Past Medical History / Comment(s): MIGRAINES(STATED HAS ENLARGED BLOOD VESSEL LT SIDE OF BRAIN), VILITIGO(AUTO IMMUNE SKIN DISEASE) LACTOSE INTOLERANCE. History of Any Multi-Drug Resistant Organisms: None Reported Past Surgical History: Adenoidectomy, Cholecystectomy, Heart Catheterization, Hernia Repair Additional Past Surgical History / Comment(s): TILT TABLE TEST-08/2013, Dental surgary with two pulled teeth on the lower left jaw. 01/07/22 Pt had remainder of teeth removed. Past Anesthesia/Blood Transfusion Reactions: Previous Problems w/ Anesthesia, Motion Sickness Additional Past Anesthesia/Blood Transfusion Reaction / Comment(s): B/P DROPS VERY LOW WITH EPIDURALS PER PT, CLAUSTERPHOBIA Past Psychological History: Anxiety, Bipolar, Depression, Panic Disorder, PTSD Smoking Status: Current every day smoker Past Alcohol Use History: None Reported Past Drug Use History: Marijuana - Past Family History Mother Family Medical History: Cancer Additional Family Medical History / Comment(s): THYROID AND CERVICAL CAMCER, BIPOLAR. MATERNAL GRANDMOTHER HAD ULCERATIVE COLITIS. Father Additional Family Medical History / Comment(s): IBA, BIPOLAR <Yanelis Garnica - Last Filed: 05/21/22 10:58> Course Vital Signs 05/21/22 05/21/22 11:13 16:19 Temperature 98.4 F Pulse Rate 89 78 Respiratory 16 18 Rate Blood Pressure 125/86 122/64 O2 Sat by Pulse 96 98 Oximetry Medical Decision Making - Lab Data Result diagrams: 05/21/22 13:34 05/21/22 13:34 <Romy Barnett - Last Filed: 05/21/22 22:08> - Medical Decision Making Was pt. sent in by a medical professional or institution? @ -[by , PA, COMBAT CONTROL MANAGER, urgent care, hospital, or residential] Did you speak to anyone other than the patient for history? @ -[EMS, parent, family, police, friend?] Did you review nursing and triage notes? @ -[agree or disagree, why?] Were old charts reviewed? @ -[outside hosp., previous admissions, EMS record, old EKG, old radiological studies, urgent care reports/EKGs, residential records?] Differential Diagnosis? @ -[chest pain, altered mental status abdominal pain women, abdominal pain men, vaginal bleeding, weakness, fever, dyspnea, syncope, headache, dizziness, GI bleed, back pain, seizure] EKG interpreted by me (3pts min.)? @ -[none] X-rays interpreted by me (1pt min.)? @ -[none] CT interpreted by me (1pt min.)? @ -[none] U/S interpreted by me (1pt. min.)? @ -[none] What testing was considered but not performed? (CT, X-rays, U/S, labs)? Why? @ [CT, X-rays, U/S, labs? Why?] What meds were considered but not given? Why? @ -[none] Did you discuss the management of the patient with other professionals? @ -[professionals i.e. Dr, PA, COMBAT CONTROL MANAGER, Lab, RT, Psych Nurse, Stylist Assistant, Biomass Boiler Operator, Teacher, Stove Bottom Worker, senior contracts manager? Give summary] Did you reconcile home meds? @ -[none] Was smoking cessation discussed for >3mins.? @ -[none] Was critical care preformed (if so, how long)? @ -[none] Were there social determinants of health that impacted care today? How? (Homelessness, low income, unemployed, alcoholism, drug addiction, transportation, low edu. Level, literacy, decrease access to med. care, long term, rehab)? @ -[Homelessness, low income, unemployed, alcoholism, drug addiction, transportation, low edu. Level, literacy, decrease access to med. care, long term, rehab?] Was there de-escalation of care discussed even if they declined? (Discuss DNR or withdrawal of care, Hospice)? @ -[Discuss DNR or withdrawal of care, Hospice?] What co-morbidities impacted this encounter? (DM, HTN, Smoking, COPD, CAD, Cancer, CVA, Hep., AIDS, mental health diagnosis, sleep apnea, morbid obesity)? @ -[DM, HTN, Smoking, COPD, CAD, Cancer, CVA, Hep., AIDS, mental health diagnosis, sleep apnea, morbid obesity?] Was patient admitted / discharged? Upon arrival patient was placed into room 24. There are history and physical exam was performed. As the patient did have a workup several months ago I did recommend repeating studies for which the patient was agreeable. IV is established and laboratory studies are conducted. Patient is sent for CT of the brain. CT is read as normal at this time. No dilated vascular structures. This is related to the patient. She was relieved at this time. She was given Valium for her dizziness and states that her symptoms improved. I did discuss the possible diagnosis of Mnire's. States that she has not been diagnosed with this however this is something that I'm concerned the patient might have because of her reported symptoms. I recommended that she follow up with ENT. States that she has a appointment with Dr. Foote next week. I recommended treatment with a scopolamine patch, prednisone pack and Lasix due to her reported ear pressure. Patient will be given a 5 day supply of medications. Instructed take medications as directed. Follow-up with her care team and return for any new or worsening symptoms. Patient agreeable to this plan and she was discharged home in stable condition Undiagnosed new problem with uncertain prognosis? @ -[none] Drug Therapy requiring intensive monitoring for toxicity (Heparin, Nitro, Insulin, Cardizem)? @ -[none] Were any procedures done? @ -[none] Diagnosis/symptom? @ -[default] Acute, or Chronic, or Acute on Chronic? @ -[default] Uncomplicated (without systemic symptoms) or Complicated (systemic symptoms)? @ -[default] Side effects of treatment? @ -[none] Exacerbation, Progression, or Severe Exacerbation] @ -[no] Poses a threat to life or bodily function? @ -[no] (Romy Barnett) - Lab Data Lab Results 05/21/22 05/21/22 05/21/22 Range/Units 12:22 13:34 13:34 WBC (3.8-10.6) k/uL RBC (3.80-5.40) m/uL Hgb (11.4-16.0) gm/dL Hct (34.0-46.0) % MCV (80.0-100.0) fL MCH (25.0-35.0) pg MCHC (31.0-37.0) g/dL RDW (11.5-15.5) % Plt Count (150-450) k/uL MPV Neutrophils % % Lymphocytes % % Monocytes % % Eosinophils % % Basophils % % Neutrophils # (1.3-7.7) k/uL Lymphocytes # (1.0-4.8) k/uL Monocytes # (0-1.0) k/uL Eosinophils # (0-0.7) k/uL Basophils # (0-0.2) k/uL Sodium (137-145) mmol/L Potassium (3.5-5.1) mmol/L Chloride (98-107) mmol/L Carbon Dioxide (22-30) mmol/L Anion Gap mmol/L BUN (7-17) mg/dL Creatinine (0.52-1.04) mg/dL Est GFR (CKD-EPI)AfAm (>60 ml/min/1.73 sqM) Est GFR (CKD-EPI)NonAf (>60 ml/min/1.73 sqM) Glucose (74-99) mg/dL POC Glucose (mg/dL) 86 (70-110) mg/dL POC Glu Associate Professor Of Chemistry ID Belval, Leslie Calcium (8.4-10.2) mg/dL Total Bilirubin (0.2-1.3) mg/dL AST (14-36) U/L ALT (4-34) U/L Alkaline Phosphatase (38-126) U/L Total Protein (6.3-8.2) g/dL Albumin (3.5-5.0) g/dL Urine Color Yellow Urine Appearance Cloudy H (Clear) Urine pH 6.0 (5.0-8.0) Ur Specific [place] 1.030 (1.001-1.035) Urine Protein 1+ H (Negative) Urine Glucose (UA) Negative (Negative) Urine Ketones 1+ H (Negative) Urine Blood Negative (Negative) Urine Nitrite Negative (Negative) Urine Bilirubin 1+ H (Negative) Urine Urobilinogen 3.0 (<2.0) mg/dL Ur Leukocyte Esterase Negative (Negative) Urine RBC 1 (0-5) /hpf Urine WBC 1 (0-5) /hpf Ur Squamous Epith Cells 5 H (0-4) /hpf Urine Mucus Moderate H (None) /hpf Urine HCG, Qual Not Detected (Not Detectd) 05/21/22 05/21/22 Range/Units 13:34 13:34 WBC 3.1 L (3.8-10.6) k/uL RBC 4.77 (3.80-5.40) m/uL Hgb 14.4 (11.4-16.0) gm/dL Hct 43.0 (34.0-46.0) % MCV 90.2 (80.0-100.0) fL MCH 30.1 (25.0-35.0) pg MCHC 33.4 (31.0-37.0) g/dL RDW 14.1 (11.5-15.5) % Plt Count 204 (150-450) k/uL MPV 7.6 Neutrophils % 63 % Lymphocytes % 27 % Monocytes % 6 % Eosinophils % 1 % Basophils % 1 % Neutrophils # 2.0 (1.3-7.7) k/uL Lymphocytes # 0.9 L (1.0-4.8) k/uL Monocytes # 0.2 (0-1.0) k/uL Eosinophils # 0.0 (0-0.7) k/uL Basophils # 0.0 (0-0.2) k/uL Sodium 138 (137-145) mmol/L Potassium 4.0 (3.5-5.1) mmol/L Chloride 105 (98-107) mmol/L Carbon Dioxide 26 (22-30) mmol/L Anion Gap 7 mmol/L BUN 14 (7-17) mg/dL Creatinine 0.73 (0.52-1.04) mg/dL Est GFR (CKD-EPI)AfAm >90 (>60 ml/min/1.73 sqM) Est GFR (CKD-EPI)NonAf >90 (>60 ml/min/1.73 sqM) Glucose 86 (74-99) mg/dL POC Glucose (mg/dL) (70-110) mg/dL POC Glu Associate Professor Of Chemistry ID Calcium 9.0 (8.4-10.2) mg/dL Total Bilirubin 0.3 (0.2-1.3) mg/dL AST 26 (14-36) U/L ALT 22 (4-34) U/L Alkaline Phosphatase 80 (38-126) U/L Total Protein 7.0 (6.3-8.2) g/dL Albumin 4.5 (3.5-5.0) g/dL Urine Color Urine Appearance (Clear) Urine pH (5.0-8.0) Ur Specific [place] (1.001-1.035) Urine Protein (Negative) Urine Glucose (UA) (Negative) Urine Ketones (Negative) Urine Blood (Negative) Urine Nitrite (Negative) Urine Bilirubin (Negative) Urine Urobilinogen (<2.0) mg/dL Ur Leukocyte Esterase (Negative) Urine RBC (0-5) /hpf Urine WBC (0-5) /hpf Ur Squamous Epith Cells (0-4) /hpf Urine Mucus (None) /hpf Urine HCG, Qual (Not Detectd) Disposition <Yanelis Garnica - Last Filed: 05/21/22 10:58> Is patient prescribed a controlled substance at d/c from ED?: No Time of Disposition: 16:06 <Romy Barnett - Last Filed: 05/21/22 22:08> Clinical Impression: Vertigo Disposition: HOME SELF-CARE Condition: Stable Instructions (If sedation given, give patient instructions): Meniere Disease (ED), Syncope (ED) Additional Instructions: You have not been diagnosed with Mnire's disease however this is something that I am considering you may have. Start taking the steroid pack tomorrow. May start the Lasix today. Wear the scopolamine patch and remove in [address] Foote for further evaluation Prescriptions: predniSONE [Deltasone] 20 mg PO BID #10 tab Furosemide [Lasix] 20 mg PO DAILY #5 tab Referrals: Alycia Dacosta [Primary Care Provider] - 1-2 days
[2022-05-21 11:16] VITALS: TEMP 98.4
[2022-05-21 12:24] LABS: Glucose,Whole Blood 86 mg/dL (70-110)
[2022-05-21 13:46] LABS: Basophils % (A) 1 %; Eosinophils % (A) 1 %; HGB 14.4 gm/dL (11.4-16.0); Lymphocytes # (A) 0.9 k/uL (1.0-4.8); Lymphocytes % (A) 27 %; MCH 30.1 pg (25.0-35.0); MCHC 33.4 g/dL (31.0-37.0); MCV 90.2 fL (80.0-100.0); Mean Platelet Volume 7.6; Monocytes # (A) 0.2 k/uL (0-1.0); Monocytes % (A) 6 %; Neutrophils % (A) 63 %; Platelet Count 204 k/uL (150-450); RBC 4.77 m/uL (3.80-5.40); RDW 14.1 % (11.5-15.5); WBC 3.1 k/uL (3.8-10.6)
[2022-05-21 13:59] LABS: ALT 22 U/L (4-34); AST 26 U/L (14-36); African American GFR (CKD) >90 (>60 ml/min/1.73 sqM); Albumin 4.5 g/dL (3.5-5.0); Alkaline Phosphatase 80 U/L (38-126); Anion Gap 7 mmol/L; Blood Urea Nitrogen 14 mg/dL (7-17); Carbon Dioxide 26 mmol/L (22-30); Chloride 105 mmol/L (98-107); Glucose 86 mg/dL (74-99); Non-African American GFR(CKD) >90 (>60 ml/min/1.73 sqM); Sodium 138 mmol/L (137-145); Total Bilirubin 0.3 mg/dL (0.2-1.3)
[2022-05-21 14:00] LABS: Appearance,Urine Cloudy (Clear); Bilirubin,Urine 1+ (Negative); Blood,Urine Negative (Negative); Color,Urine Yellow; Glucose,Urine (UA) Negative (Negative); Ketones,Urine 1+ (Negative); Leukocyte Esterase,Urine Negative (Negative); Mucus,Urine Moderate /hpf; Nitrite,Urine Negative (Negative); Protein,Urine 1+ (Negative); RBC,Urine 1 /hpf (0-5); Squamous Epithelial Cell,Urine 5 /hpf (0-4); WBC,Urine 1 /hpf (0-5)
--- NOTE | 2022-05-21 14:59 | CT ---
EXAMINATION TYPE: CT angio head neck DATE OF EXAM: 05/21/2022 COMPARISON: 03/23/2022 HISTORY: Patient having dizziness and known stenosis of vessel in head CT DLP: 437.8 mGycm CONTRAST: Performed with IV Contrast, patient injected with 65 mL of Isovue 370. Combination Contrast CTA cervical carotids and [place] CTA cervical carotids with 3-D recons truction Contrast CTA of the cervical carotids was performed 3-D reconstruction imaging obtained at a separate workstation. Right carotid system: No significant plaque is seen of the right common carotid artery. There is No significant plaque also noted at the carotid bulb and proximal ICA. No significant diameter reductio n. ECA is patent. Right vertebral artery appears unremarkable. Left carotid system: No significant plaque is seen of the left common carotid artery. There is No si gnificant plaque also noted at the carotid bulb and proximal ICA. No significant diameter reduction. ECA is patent. Left vertebral artery appears unremarkable. IMPRESSION: 1. No significant diameter reduction to account for the patient's symptoms. CTA [place] with 3-D reconstruction Contrast CTA of the [place] was performed 3-D reconstruction imaging obtained at a separate workstation. Vertebrobasilar system as well as intracranial portions of the internal carotid arteries and their ma [place] tributaries are patent. I do not see evidence for sizable aneurysm or vascular malformation. Pl ease note MRI provides greater sensitivity and specificity. Visualized brain appears grossly unremar kable. IMPRESSION: 1. No significant abnormality. NASCET criteria was used in interpretation of this exam?
--- NOTE | 2022-05-21 15:02 | CT ---
EXAMINATION TYPE: CT brain wo con DATE OF EXAM: 05/21/2022 COMPARISON: 03/23/2022 HISTORY: Patient having dizziness and known stenosis of vessel in head CT DLP: 1133.[address] of the brain was performed. The ventricles, basal cisterns and sulci overlying the cerebral convexities demonstrate a normal appe arance. There is no evidence for intracranial hemorrhage or sulcal effacement. No mass effects are seen. Osseous calvarium is intact. If symptoms persist consider MRI as clinically warranted. IMPRESSION: 1. No acute intracranial process is seen at this time.
[2022-05-21] MEDS ORDERED: predniSONE 20 MG TAB PO STA (16:00)
[2022-05-21] MEDS ORDERED: SCOPOLAMINE 1 MG/72 HR PATCH TRANSDERM STA (16:00)
[2022-05-21 16:19] VITALS: BP 122/64; PULSE 78; RESP 18
== END 2022-05-21 16:20 | disposition home or self-care (01) ==
LOC: EC 10:57
DX: R42 Dizziness and giddiness (principal); J45.909 Unspecified asthma, uncomplicated; E07.9 Disorder of thyroid, unspecified; F41.9 Anxiety disorder, unspecified; F31.9 Bipolar disorder, unspecified; F17.200 Nicotine dependence, unspecified, uncomplicated; F12.90 Cannabis use, unspecified, uncomplicated; Z91.048 Other nonmedicinal substance allergy status; Z88.1 Allergy status to other antibiotic agents; Z88.8 Allergy status to other drugs, medicaments and biological substances; Z88.2 Allergy status to sulfonamides; Z79.890 Hormone replacement therapy; Z79.899 Other long term (current) drug therapy
CPT/HCPCS: 36415; 80053; 80183; 85025; 81001; 81025; 70496; 70450; 70498; 99285; 96374; J3360; J7512; Q9967

== ENCOUNTER → 2022-07-26 | Outpatient (CLI) | payer OTHER ==
--- NOTE | 2022-07-26 16:19 | US ---
EXAMINATION TYPE: US thyroid st tissue head/neck DATE OF EXAM: 07/26/2022 COMPARISON: US November 05, 2016 CLINICAL HISTORY: E04.1 NONTOXIC SINGLE THYROID NODULE. F/U, pt on thyroid meds x 8 years GLAND SIZE: Right Lobe: 4.0 x 1.6 x 1.7 cm Overall Parenchyma: homogenous Left Lobe: 3.7 x 1.2 x 1.2 cm Overall Parenchyma: homogeneous Isthmus Thickness: 0.3 cm NODULES RIGHT: # of nodules measured on right: 0 LEFT: # of nodules measured on left: 0 ISTHMUS: # of nodules measured in the isthmus: 0 Bilateral neck scanned, no evidence of lymphadenopathy. Bilateral thyroid appeared wnl, no evidence of nodules on today's exam. Homogeneous slightly small size thyroid without significant greater than 1.0 cm nodule. IMPRESSION: As above. No significant change from prior.
== END | disposition home or self-care (01) ==
LOC: RADUSWWP 15:14
PROVIDERS: ATTEND Internal Medicine
DX: E04.1 Nontoxic single thyroid nodule (principal)
CPT/HCPCS: 76536

== ENCOUNTER → 2022-12-09 | Outpatient (CLI) | payer OTHER ==
--- NOTE | 2022-12-09 11:51 | CT ---
EXAMINATION TYPE: CT sinus wo con DATE OF EXAM: 12/09/2022 COMPARISON: CTA head and neck on 05/21/2022. CT sinus on 11/05/2016. HISTORY: Sinusitis. CT DLP: 599.8 mGycm. Automated Exposure Control for Dose Reduction was Utilized. TECHNIQUE: CT scan of the sinuses is performed without contrast, axial images are obtained, coronal r eformatted images are also reviewed. FINDINGS: The paranasal sinuses including the frontal, ethmoid, sphenoid, and maxillary sinuses bila terally are well-aerated without abnormal opacification. The ostiomeatal complex is patent bilateral ly on the coronal images. Multiple rightward nasal septal deviation. Visualized portion of mastoid air cells show no abnormal opacification. The globes are intact bilate rally. IMPRESSION: 1. The sinuses are clear and the ostiomeatal complex is patent bilaterally. 2. Minimal rightward nasal septal deviation
== END | disposition home or self-care (01) ==
LOC: RADCTMAIN 10:49
PROVIDERS: ATTEND Otolaryngology
DX: J32.9 Chronic sinusitis, unspecified (principal); J34.2 Deviated nasal septum
CPT/HCPCS: 70486

== ENCOUNTER 2023-12-26 14:29 | Emergency (ER) | payer OTHER ==
[2023-12-26 14:34] VITALS: RESP 18
--- NOTE | 2023-12-26 15:15 | ED ---
URI HPI - General Chief Complaint: Upper Respiratory Infection Stated Complaint: upper respiratory issues Time Seen by Provider: 12/26/23 14:49 Source: patient, RN notes reviewed Mode of arrival: ambulatory Limitations: no limitations - History of Present Illness Initial Comments: 33-year-old female presenting with sinus congestion x 1 month with associated cough, sinus pressure, and shortness of breath. States she has been on clarithromycin with no relief. Denies fevers, chills, vomiting, sore throat. States she has a history of COPD. - Related Data Home Medications Medication Instructions Recorded Confirmed Levothyroxine Sodium [Levoxyl] 75 mcg PO DAILY 12/04/16 12/26/23 OXcarbazepine [Trileptal] 300 mg PO BID 03/23/22 12/26/23 Cyclobenzaprine [Flexeril] 10 mg PO TID PRN 03/05/23 12/26/23 hydrOXYzine pamoate [Vistaril] 50 mg PO BID PRN 03/05/23 12/26/23 Albuterol Inhaler [Ventolin Hfa 2 puff INHALATION RT-Q4H PRN 10/31/23 12/26/23 Inhaler] Albuterol Nebulized [Ventolin 2.5 mg INHALATION RT-Q8H 10/31/23 12/26/23 Nebulized] Desvenlafaxine Succinate [Pristiq] 100 mg PO DAILY 10/31/23 12/26/23 Famotidine [Pepcid] 20 mg PO BID 10/31/23 12/26/23 Ibuprofen [Motrin] 800 mg PO TID PRN 10/31/23 12/26/23 Linaclotide [Linzess] 290 mcg PO DAILY 10/31/23 12/26/23 Montelukast [Singulair] 10 mg PO DAILY 10/31/23 12/26/23 clonazePAM [KlonoPIN] 0.5 mg PO BID PRN 10/31/23 12/26/23 ARIPiprazole [Abilify] 6 mg PO DAILY 12/26/23 12/26/23 guanFACINE HCL [Intuniv] 1 mg PO DAILY 12/26/23 12/26/23 polyethylene glycoL 3350 [Miralax] 17 gm PO BID PRN 12/26/23 12/26/23 Previous Rx's Medication Instructions Recorded Doxycycline [Vibramycin] 100 mg PO BID 7 Days #14 capsule 12/26/23 Allergies Allergy/AdvReac Type Severity Reaction Status Date / Time adhesive Allergy Rash/Hives Verified 12/26/23 15:48 amoxicillin [Amoxicillin] Allergy Rash/Hives Verified 12/26/23 15:48 fluticasone [From Flonase] Allergy Anaphylaxis Verified 12/26/23 15:48 hydrocortisone Allergy Rash/Hives Verified 12/26/23 15:48 latex Allergy Rash/Hives Verified 12/26/23 15:48 sulfamethoxazole Allergy Rash/Hives Verified 12/26/23 15:48 [From Bactrim] trimethoprim [From Bactrim] Allergy Rash/Hives Verified 12/26/23 15:48 duloxetine [From Cymbalta] AdvReac Paradoxical Verified 12/26/23 15:48 Reaction olanzapine [From Zyprexa] AdvReac Paradoxical Verified 12/26/23 15:48 Reaction quetiapine [From Seroquel] AdvReac Paradoxical Verified 12/26/23 15:48 Reaction Review of Systems ROS Statement: Those systems with pertinent positive or pertinent negative responses have been documented in the HPI. ROS Other: All systems not noted in ROS Statement are negative. Past Medical History Past Medical History: COPD, GERD/Reflux, Pneumonia, Skin Disorder, Syncope, Thyroid Disorder Additional Past Medical History / Comment(s): MIGRAINES(STATED HAS ENLARGED BLOOD VESSEL LT SIDE OF BRAIN), VILITIGO(AUTO IMMUNE SKIN DISEASE) LACTOSE INTOLERANCE. EHLER'S DANLOS SYNDROME, lumbar spine herniated disc History of Any Multi-Drug Resistant Organisms: None Reported Past Surgical History: Adenoidectomy, Cholecystectomy, Heart Catheterization, Hernia Repair Additional Past Surgical History / Comment(s): TILT TABLE TEST-08/2013, Dental surg with two pulled teeth on the lower left jaw. 01/07/22 Pt had remainder of teeth removed. EGD/colonoscopy 2016 Past Anesthesia/Blood Transfusion Reactions: Previous Problems w/ Anesthesia, Motion Sickness Additional Past Anesthesia/Blood Transfusion Reaction / Comment(s): B/P DROPS VERY LOW WITH EPIDURALS PER PT, CLAUSTROPHOBIA Past Psychological History: Anxiety, Bipolar, Depression, Panic Disorder, PTSD, Schizoaffective Disorder Smoking Status: Former smoker Past Alcohol Use History: Occasional Past Drug Use History: Marijuana - Past Family History Mother Family Medical History: Cancer Additional Family Medical History / Comment(s): THYROID AND CERVICAL CANCER, BIPOLAR. MATERNAL GRANDMOTHER HAD ULCERATIVE COLITIS. Father Additional Family Medical History / Comment(s): IBA, BIPOLAR General Exam Limitations: no limitations General appearance: alert, in no apparent distress Head exam: Present: atraumatic, normocephalic, normal inspection Eye exam: Present: normal appearance, PERRL, EOMI. Absent: scleral icterus, conjunctival injection, periorbital swelling ENT exam: Present: normal exam, normal oropharynx, mucous membranes moist, TM's normal bilaterally Neck exam: Present: normal inspection. Absent: tenderness, meningismus, lymphadenopathy Respiratory exam: Present: normal lung sounds bilaterally. Absent: respiratory distress, wheezes, rales, rhonchi, stridor Cardiovascular Exam: Present: regular rate, normal rhythm, normal heart sounds. Absent: systolic murmur, diastolic murmur, rubs, gallop, clicks Neurological exam: Present: alert, oriented X3 Psychiatric exam: Present: normal affect, normal mood Skin exam: Present: warm, dry, intact, normal color. Absent: rash Course Vital Signs 12/26/23 12/26/23 14:31 15:27 Temperature 97.8 F Pulse Rate 82 Respiratory 18 18 Rate Blood Pressure 144/90 O2 Sat by Pulse 93 L Oximetry Medical Decision Making - Medical Decision Making Was pt. sent in by a medical professional or institution ([facility], [employer], urgent care, hospital, or prison...) When possible be specific @ -No Did you speak to anyone other than the patient for history (EMS, parent, family, police, friend...)? What history was obtained from this source @ -No Did you review nursing and triage notes (agree or disagree)? Why? @ -I reviewed and agree with nursing and triage notes Were old charts reviewed (outside hosp., previous admission, EMS record, old EKG, old radiological studies, urgent care reports/EKG's, prison records)? Report findings @ -No old charts were reviewed Differential Diagnosis (chest pain, altered mental status, abdominal pain women, abdominal pain men, vaginal bleeding, weakness, fever, dyspnea, syncope, headache, dizziness, GI bleed, back pain, seizure, CVA, palpatations, mental health, musculoskeletal)? @ -Acute viral sinusitis, acute bacterial sinusitis, pneumonia, acute viral URI, COVID, influenza, bronchitis, allergic rhinitis EKG interpreted by me (3pts min.). @ -None X-rays interpreted by me (1pt min.). @ -Chest x-ray revealed no acute process CT interpreted by me (1pt min.). @ -None done U/S interpreted by me (1pt. min.). @ -None done What testing was considered but not performed or refused? (CT, X-rays, U/S, labs)? Why? @ -Patient declined Cepheid swab What meds were considered but not given or refused? Why? @ -None Did you discuss the management of the patient with other professionals (professionals i.e. , PA, [employer], lab, RT, psych nurse, social media director, communications associate, te acher, food safety officer, manager case)? Give summary @ -No Was smoking cessation discussed for >3mins.? @ -No Was critical care preformed (if so, how long)? @ -No Were there social determinants of health that impacted care today? How? (Homelessness, low income, unemployed, alcoholism, drug addiction, transportation, low edu. Level, literacy, decrease access to med. care, nursing home, rehab)? @ -No Was there de-escalation of care discussed even if they declined (Discuss DNR or withdrawal of care, Hospice)? DNR status @ -No What co-morbidities impacted this encounter? (DM, HTN, Smoking, COPD, CAD, Cancer, CVA, ARF, Chemo, Hep., AIDS, mental health diagnosis, sleep apnea, morbid obesity)? @ -None Was patient admitted / discharged? Hospital course, mention meds given and route, prescriptions, significant lab abnormalities, going to OR and other pertinent info. @ -Patient was discharged. Patient was seen and evaluated for sinus congestion x 1 month with associated cough. Vital signs within normal limits, patient is afebrile nontachycardic. Chest x-ray reveals no acute process. Discussed diagnosis of acute bacterial sinusitis with patient. Discussed that based off of symptom length of 4 weeks, it is reasonable at this time to prescribe antibiotics. Patient shows understanding and is agreeable to plan. Prescribed doxycycline due to penicillin allergy. Supportive care discussed. Advise close follow-up with PCP. Return precautions discussed. Case discussed with my ED attending Dr. Barnett. Patient discharged in stable condition. Undiagnosed new problem with uncertain prognosis? @ -No Drug Therapy requiring intensive monitoring for toxicity (Heparin, Nitro, Insulin, Cardizem)? @ -No Were any procedures done? @ -No Diagnosis/symptom? @ -Acute bacterial sinusitis Acute, or Chronic, or Acute on Chronic? @ -Acute Uncomplicated (without systemic symptoms) or Complicated (systemic symptoms)? @ -Uncomplicated Side effects of treatment? @ -No Exacerbation, Progression, or Severe Exacerbation? @ -No Poses a threat to life or bodily function? How? (Chest pain, [place], [place], pneumonia, PE, COPD, DKA, ARF, appy, cholecystitis, CVA, Diverticulitis, Homicidal, Suicidal, threat to staff... and all critical care pts) @ -No Disposition Clinical Impression: Acute bacterial sinusitis Disposition: HOME SELF-CARE Condition: Stable Instructions (If sedation given, give patient instructions): Sinusitis (ED) Additional Instructions: Take doxycycline as prescribed. Continue to use antihistamine such as Zyrtec or Claritin and nasal steroid such as Flonase. Please return to the Emergency Department if symptoms worsen or any other concerns. Prescriptions: Doxycycline [Vibramycin] 100 mg PO BID 7 Days #14 capsule Is patient prescribed a controlled substance at d/c from ED?: No Referrals: Grzegorz Boyd [Primary Care Provider] - 1-2 days Time of Disposition: 16:15
--- NOTE | 2023-12-26 15:41 | XR ---
EXAMINATION TYPE: XR chest 2V DATE OF EXAM: 12/26/2023 COMPARISON: 03/23/2022 HISTORY: 33-year-old female with cough TECHNIQUE: PA and lateral views FINDINGS: The cardiomediastinal silhouette, aorta, and pulmonary vasculature are within normal limits. Lungs an d pleural spaces are clear. IMPRESSION: No acute cardiopulmonary process.
[2023-12-26 16:27] VITALS: BP 135/81; PULSE 80; TEMP 97.9
== END 2023-12-26 16:25 | disposition home or self-care (01) ==
LOC: EC 14:29
CPT/HCPCS: 71046; 99283

== ENCOUNTER 2024-01-11 21:56 | Emergency (ER) | payer OTHER ==
[2024-01-11 21:59] VITALS: RESP 16; TEMP 97.8
--- NOTE | 2024-01-11 23:28 | ED ---
Lower Extremity Injury HPI - General Chief Complaint: Extremity Injury, Lower Stated Complaint: left ankle pain Time Seen by Provider: 01/11/24 23:26 Source: patient, RN notes reviewed Mode of arrival: ambulatory Limitations: no limitations - History of Present Illness Initial Comments: 33-year-old female presented to the ER with a chief complaint of left ankle pain. Patient states today she was moving boxes up and down the stairs all day. She states after completing physical activity started to notice pain to her left ankle and foot. She states the pain radiates "through her toes" and up 2 inches onto her hopson. Denies any known injuries or traumas. Denies any weakness. Patient has taken [id number] ibuprofen and Tylenol for symptoms at this time. Patient has a his past medical history significant of Dell- Danlos syndrome. - Related Data Home Medications Medication Instructions Recorded Confirmed Levothyroxine Sodium [Levoxyl] 75 mcg PO DAILY 12/04/16 12/26/23 OXcarbazepine [Trileptal] 300 mg PO BID 03/23/22 12/26/23 Cyclobenzaprine [Flexeril] 10 mg PO TID PRN 03/05/23 12/26/23 hydrOXYzine pamoate [Vistaril] 50 mg PO BID PRN 03/05/23 12/26/23 Albuterol Inhaler [Ventolin Hfa 2 puff INHALATION RT-Q4H PRN 10/31/23 12/26/23 Inhaler] Albuterol Nebulized [Ventolin 2.5 mg INHALATION RT-Q8H 10/31/23 12/26/23 Nebulized] Desvenlafaxine Succinate [Pristiq] 100 mg PO DAILY 10/31/23 12/26/23 Famotidine [Pepcid] 20 mg PO BID 10/31/23 12/26/23 Ibuprofen [Motrin] 800 mg PO TID PRN 10/31/23 12/26/23 Linaclotide [Linzess] 290 mcg PO DAILY 10/31/23 12/26/23 Montelukast [Singulair] 10 mg PO DAILY 10/31/23 12/26/23 clonazePAM [KlonoPIN] 0.5 mg PO BID PRN 10/31/23 12/26/23 ARIPiprazole [Abilify] 6 mg PO DAILY 12/26/23 12/26/23 guanFACINE HCL [Intuniv] 1 mg PO DAILY 12/26/23 12/26/23 polyethylene glycoL 3350 [Miralax] 17 gm PO BID PRN 12/26/23 12/26/23 Previous Rx's Medication Instructions Recorded Doxycycline [Vibramycin] 100 mg PO BID 7 Days #14 capsule 12/26/23 Allergies Allergy/AdvReac Type Severity Reaction Status Date / Time adhesive Allergy Rash/Hives Verified 01/11/24 22:00 amoxicillin [Amoxicillin] Allergy Rash/Hives Verified 01/11/24 22:00 fluticasone [From Flonase] Allergy Anaphylaxis Verified 01/11/24 22:00 hydrocortisone Allergy Rash/Hives Verified 01/11/24 22:00 latex Allergy Rash/Hives Verified 01/11/24 22:00 sulfamethoxazole Allergy Rash/Hives Verified 01/11/24 22:00 [From Bactrim] trimethoprim [From Bactrim] Allergy Rash/Hives Verified 01/11/24 22:00 duloxetine [From Cymbalta] AdvReac Paradoxical Verified 01/11/24 22:00 Reaction olanzapine [From Zyprexa] AdvReac Paradoxical Verified 01/11/24 22:00 Reaction quetiapine [From Seroquel] AdvReac Paradoxical Verified 01/11/24 22:00 Reaction Review of Systems ROS Statement: Those systems with pertinent positive or pertinent negative responses have been documented in the HPI. ROS Other: All systems not noted in ROS Statement are negative. Past Medical History Past Medical History: COPD, GERD/Reflux, Pneumonia, Skin Disorder, Syncope, Thyroid Disorder Additional Past Medical History / Comment(s): MIGRAINES(STATED HAS ENLARGED BLOOD VESSEL LT SIDE OF BRAIN), VILITIGO(AUTO IMMUNE SKIN DISEASE) LACTOSE INTOLERANCE. EHLER'S DANLOS SYNDROME, lumbar spine herniated disc History of Any Multi-Drug Resistant Organisms: None Reported Past Surgical History: Adenoidectomy, Cholecystectomy, Heart Catheterization, Hernia Repair Additional Past Surgical History / Comment(s): TILT TABLE TEST-08/2013, Dental surg with two pulled teeth on the lower left jaw. 01/07/22 Pt had remainder of teeth removed. EGD/colonoscopy 2015 Past Anesthesia/Blood Transfusion Reactions: Previous Problems w/ Anesthesia, Motion Sickness Additional Past Anesthesia/Blood Transfusion Reaction / Comment(s): B/P DROPS VERY LOW WITH EPIDURALS PER PT, CLAUSTROPHOBIA Past Psychological History: Anxiety, Bipolar, Depression, Panic Disorder, PTSD, Schizoaffective Disorder Smoking Status: Former smoker Past Alcohol Use History: Occasional Past Drug Use History: Marijuana - Past Family History Mother Family Medical History: Cancer Additional Family Medical History / Comment(s): THYROID AND CERVICAL CANCER, BIPOLAR. MATERNAL GRANDMOTHER HAD ULCERATIVE COLITIS. Father Additional Family Medical History / Comment(s): IBA, BIPOLAR General Exam Limitations: no limitations General appearance: alert, in no apparent distress Respiratory exam: Present: normal lung sounds bilaterally. Absent: respiratory distress, wheezes, rales, rhonchi, stridor Cardiovascular Exam: Present: regular rate, normal rhythm, normal heart sounds. Absent: systolic murmur, diastolic murmur, rubs, gallop, clicks Extremities exam: Present: tenderness (Left lateral malleolus.) Course Vital Signs 01/11/24 01/12/24 21:58 01:30 Temperature 97.8 F Pulse Rate 108 H 83 Respiratory 16 16 Rate Blood Pressure 121/81 112/76 O2 Sat by Pulse 99 98 Oximetry Medical Decision Making - Medical Decision Making Was pt. sent in by a medical professional or institution (, [facility], [employer], urgent c are, hospital, or [facility]...) When possible be specific @ -No Did you speak to anyone other than the patient for history (EMS, parent, family, police, friend...)? What history was obtained from this source @ -No Did you review nursing and triage notes (agree or disagree)? Why? @ -I reviewed and agree with nursing and triage notes Were old charts reviewed (outside hosp., previous admission, EMS record, old EKG, old radiological studies, urgent care reports/EKG's, [facility] records)? Report findings @ -No old charts were reviewed Differential Diagnosis (chest pain, altered mental status, abdominal pain women, abdominal pain men, vaginal bleeding, weakness, fever, dyspnea, syncope, headache, dizziness, GI bleed, back pain, seizure, CVA, palpatations, mental health, musculoskeletal)? @ -Differential Musculoskeletal: Muscular strain, contusion, ligament sprain, fracture, arthritis, septic arthritis, bursitis, cellulitis, muscle spasm, nerve compression, DVT, arterial occlusion, herpes zoster, electrolyte abnormality, tumor.... This is not meant to be in all inclusive list EKG interpreted by me (3pts min.). @ -None done X-rays interpreted by me (1pt min.). @ -Left ankle and foot x-ray interpreted me negative for acute osseous process. CT interpreted by me (1pt min.). @ -None done U/S interpreted by me (1pt. min.). @ -None done What testing was considered but not performed or refused? (CT, X-rays, U/S, labs)? Why? @ -None What meds were considered but not given or refused? Why? @ -None Did you discuss the management of the patient with other professionals ( professionals i.e. , PA, [employer], lab, RT, psych nurse, social group worker, information technology architect, teacher, foreign service officer, nurse outreach case manager)? Give summary @ -No Was smoking cessation discussed for >3mins.? @ -No Was critical care preformed (if so, how long)? @ -No Were there social determinants of health that impacted care today? How? (Homelessness, low income, unemployed, alcoholism, drug addiction, transportation, low edu. Level, literacy, decrease access to med. care, long term, rehab)? @ -No Was there de-escalation of care discussed even if they declined (Discuss DNR or withdrawal of care, Hospice)? DNR status @ -No What co-morbidities impacted this encounter? (DM, HTN, Smoking, COPD, CAD, Cancer, CVA, ARF, Chemo, Hep., AIDS, mental health diagnosis, sleep apnea, morbid obesity)? @ -Dell-Danbrendons Was patient admitted / discharged? Hospital course, mention meds given and route, prescriptions, significant lab abnormalities, going to OR and other pertinent info. @ - Discharged. 33-year-old female presenting to the ER with a chief complaint of left ankle pain. History and physical exam completed. Vitals within normal limits. Left lower extremity neurovascular intact. Patient has full active range of motion. Mild tenderness to dorsal midfoot and lateral malleolus. No overlying skin changes. X-rays obtained negative for acute process. Pain believed to be soft tissue injury and/or overuse. Junior wrap provided. Patient refused analgesic medications. Advise close follow-up with PCP. Conservative treatment options discussed. Patient discharged in stable condition. Patient verbally expressed understanding agree with care plan. Case discussed with ED attending, Dr. Barnett.] Undiagnosed new problem with uncertain prognosis? @ -No Drug Therapy requiring intensive monitoring for toxicity (Heparin, Nitro, Insulin, Cardizem)? @ -No Were any procedures done? @ -No Diagnosis/symptom? @ -Ankle sprain Acute, or Chronic, or Acute on Chronic? @ -Acute Uncomplicated (without systemic symptoms) or Complicated (systemic symptoms)? @ -Uncomplicated Side effects of treatment? @ -No Exacerbation, Progression, or Severe Exacerbation? @ -No Poses a threat to life or bodily function? How? (Chest pain, [place], [place], pneumonia, PE, COPD, DKA, ARF, appy, cholecystitis, CVA, Diverticulitis, Homicidal, Suicidal, threat to staff... and all critical care pts) @ -No - Radiology Data Radiology results: report reviewed, image reviewed Disposition Clinical Impression: Ankle sprain Disposition: HOME SELF-CARE Condition: Stable Instructions (If sedation given, give patient instructions): Ankle Sprain (ED) Additional Instructions: Plan ice, elevation, rest and compression. You may take [id number] Tylenol Motrin for pain control. Follow-up with PCP. Return to the ER for any new or worsening concerns. Is patient prescribed a controlled substance at d/c from ED?: No Referrals: Grzegorz Boyd [Primary Care Provider] - 1-2 days Time of Disposition: 01:24
--- NOTE | 2024-01-12 01:09 | XR ---
EXAM: XR Left Ankle Complete, 3 or More Views CLINICAL HISTORY: ITS.REASON XR Reason: pain TECHNIQUE: Frontal, lateral and oblique views of the left ankle. COMPARISON: No previous studies. FINDINGS: Bones/joints: Ankle mortise is preserved. Calcaneus is unremarkable. No acute fracture or dislocation. Soft tissues: Soft tissues are unremarkable. IMPRESSION: No acute fracture or dislocation.
--- NOTE | 2024-01-12 01:10 | XR ---
EXAM: XR Left Foot Complete, 3 or More Views CLINICAL HISTORY: ITS.REASON XR Reason: pain TECHNIQUE: Frontal, lateral and oblique views of the left foot. COMPARISON: No previous studies. FINDINGS: Bones/joints: Calcaneus is unremarkable. Mild osteoarthritic changes. Normal anatomic alignment. No acute fracture, dislocation, or destructive process. Soft tissues: Soft tissues are unremarkable. No radiopaque foreign body. IMPRESSION: 1. Mild osteoarthritic changes. 2. No acute fracture or dislocation.
[2024-01-12 01:35] VITALS: BP 112/76; PULSE 83
== END 2024-01-12 01:30 | disposition home or self-care (01) ==
LOC: EC 21:56
DX: R52 Pain, unspecified
CPT/HCPCS: 99283